=== PATIENT | female | born 1980 | race Caucasian/White ===

== ENCOUNTER 2020-11-16 22:51 | Emergency (ER) | payer MEDICARE, MEDICAID ==
--- NOTE | 2020-11-16 23:38 | EDM.PDOC ---
ED HPI GENERAL MEDICAL PROBLEM - General Chief Complaint: General Stated Complaint: No taste, achy Time Seen by Provider: 11/16/20 22:54 Source of Information: Reports: Patient History Limitations: Reports: No Limitations - History of Present Illness INITIAL COMMENTS - FREE TEXT/NARRATIVE: Patient comes to ER concerned that she may have Covid. One day history of mild cough, headache, body aches/symptoms started this morning. Lost sense of taste. No specific known Covid exposure but attended a gun safety class with a child last week and week before where most people were not masked. No focal chest pain complaint. Mild sensation SOB at times/has asthma. Smoker. Has not been vaccinated for Covid 19. Treatments [employer]EARCH [employer]GRAM [employer]: Reports: Acetaminophen Generalized Pain Score (Numeric/FACES): 8 - Related Data Allergies Allergy/AdvReac Type Severity Reaction Status Date / Time No Known Allergies Allergy Verified 11/16/20 22:52 Home Meds: Home Meds Acetaminophen [Tylenol Extra Strength] 1,000 mg PO ASDIRECTED PRN 11/16/20 [History] Albuterol Sulfate [Proair Hfa] 8.5 gm IH Q4HR PRN 11/16/20 [History] Amphetamine/Dextroamphetamine [Adderall XR] 30 mg PO DAILY 11/16/20 [History] Montelukast [Singulair] 10 mg PO DAILY 11/16/20 [History] atorvaSTATin [Lipitor] 40 mg PO BEDTIME 11/16/20 [History] hydrALAZINE [Apresoline] 50 mg PO DAILY 11/16/20 [History] lisinopriL [Prinivil] 20 mg PO DAILY 11/16/20 [History] Past Medical History Cardiovascular History: Reports: High Cholesterol, Hypertension Respiratory History: Reports: Asthma, COPD Psychiatric History: Reports: ADHD Endocrine/Metabolic History: Reports: Obesity/BMI 30+ Social & Family History - Tobacco Use Tobacco Use Status *Q: Current Every Day Tobacco User - Alcohol Use Alcohol Use History: No - Recreational Drug Use Recreational Drug Use: No Drug Use in Last 12 Months: No ED ROS GENERAL - Review of Systems Review Of Systems: Comprehensive ROS is negative, except as noted in HPI. ED EXAM, GENERAL - Physical Exam Exam: See Below Exam Limited By: No Limitations General Appearance: Alert, Obese, Other (uncomfortable) Eye Exam: Bilateral Eye: EOMI, PERRL Ears: Normal External Exam, Hearing Grossly Normal Nose: No: Nasal Deformity, Nasal Swelling, Nasal Drainage Throat/Mouth: Normal Lips, Normal Voice, No Airway Compromise Head: Atraumatic, Normocephalic Neck: Normal Inspection, Supple, Non-Tender, Full Range of Motion. No: Lymphadenopathy (L), Lymphadenopathy (R) Respiratory/Chest: No Respiratory Distress, No Accessory Muscle Use, Chest Non- Tender, Wheezing (mild/bilateral) Cardiovascular: Normal Peripheral Pulses, No Murmur, Tachycardia GI/Abdominal: Normal Bowel Sounds, Soft, Non-Tender, No Distention (Female) Exam: Deferred Rectal (Female) Exam: Deferred Extremities: Normal Range of Motion, Normal Capillary Refill Neurological: Alert, Oriented, Normal Cognition, Normal Gait, No Motor/Sensory Deficits Psychiatric: Anxious Skin Exam: Warm, Dry, Intact, Normal Color Course - Vital Signs Last Recorded V/S: Last Vital Signs Temp 36.4 C 11/16/20 23:09 Pulse 115 H 11/16/20 23:09 Resp 20 11/16/20 23:09 BP 127/53 L 11/16/20 23:09 Pulse Ox 97 11/16/20 23:09 - Orders/Labs/Meds Orders: Active Orders 24 hr Category Date Time Status Chest 1V Frontal [CR] Stat Exams 11/16/20 22:56 Ordered CORONAVIRUS COVID-19 CONNIE [MOLEC] Routine Lab 11/16/20 23:19 Ordered UA W/MICROSCOPIC [URIN] Stat Lab 11/16/20 23:20 Ordered Isolation [COMM] Routine Oth 11/16/20 23:21 Ordered Labs: Laboratory Tests 11/16/20 11/16/20 11/16/20 Range/Units 23:30 23:30 23:30 WBC 15.4 H (4.0-10.2) K/uL RBC 4.29 (3.77-5.09) M/uL Hgb 13.4 (11.7-15.5) g/dL Hct 39.2 (34.0-46.0) % MCV 91.4 (84.0-98.0) fL MCH 31.2 (28.2-33.3) pg MCHC 34.2 (31.7-36.0) g/dL RDW 14.2 H (11.2-14.1) % Plt Count 403 H (150-350) K/uL Neut % (Auto) 72.4 (45.0-80.0) % Lymph % (Auto) 19.4 (10.0-50.0) % [place] % (Auto) 7.2 (2.0-14.0) % Eos % (Auto) 0.8 (0.0-5.0) % Baso % (Auto) 0.2 (0.0-2.0) % Neut # (Auto) 11.19 H (1.40-7.00) K/uL Lymph # (Auto) 2.99 (0.50-3.50) K/uL [place] # (Auto) 1.11 H (0.00-1.00) K/uL Eos # (Auto) 0.12 (0.00-0.50) K/uL Baso # (Auto) 0.03 (0.00-0.20) K/uL D-Dimer, Quantitative 186 (0-400) ng/mL Sodium 136 (136-145) mmol/L Potassium 3.6 (3.5-5.1) mmol/L Chloride 101 (98-107) mmol/L Carbon Dioxide 23.1 (21.0-32.0) mmol/L BUN 12 (7-18) mg/dL Creatinine 0.80 (0.51-1.17) mg/dL Est Cr Clr Drug Dosing TNP Estimated GFR (MDRD) > 60 mL/min Glucose 116 H (70-99) mg/dL Calcium 9.4 (8.5-10.1) mg/dL Magnesium 1.9 (1.8-2.4) mg/dL Total Bilirubin 0.3 (0.2-1.0) mg/dL AST 14 L (15-37) U/L ALT 25 (12-78) U/L Alkaline Phosphatase 81 (46-116) IU/L Total Protein 6.7 (6.4-8.2) g/dL Albumin 3.1 L (3.4-5.0) g/dL - Radiology Interpretation Free Text/Narrative:: Chest xray does not show focal pneumonia or Covid type pattern of pneumonia. Pending formal Radiology review - Re-Assessments/Exams Free Text/Narrative Re-Assessment/Exam: 11/17/20 00:13 Mild tachycardia which would be anticipated with an acute viral infection/Covid. Normal respiratory rate and oxygen saturation on room air. Afebrile. Did take Tylenol earlier this evening. WBC elevated. Normal DDimer. Negative influenza. CMP overall unremarkable. Covid test will be run tomorrow morning by lab. Reassurance given to patient and usual course of Covid reviewed. She would be a candidate for monoclonal antibodies if her test is positive for Covid tomorrow. Work excuse given to patient. Encouraged to continue to avoid smoking and use this as opportunity to consider quitting smoking as she has felt too ill to smoke today. Follow up as needed depending on course of illness. To return for rechecks if feeling worse/more short of breath/etc. Departure - Departure Time of Disposition: 00:07 Disposition: Home, Self-Care 01 Condition: Good Clinical Impression: Suspected 2019-nCoV infection - Discharge Information *PRESCRIPTION DRUG MONITORING PROGRAM REVIEWED*: Not Applicable *COPY OF PRESCRIPTION DRUG MONITORING REPORT IN PATIENT SHUKRI: Not Applicable Instructions: COVID-19 Frequently Asked Questions, 10 Things You Can Do to Manage Your COVID-19 Symptoms at Home - CDC Referrals: PCP,Unknown [Primary Care Provider] - Forms: ED Department Discharge, ED Return to Work/School Form Additional Instructions: Stay home, rest, and stay hydrated! Tylenol for pain/fever. We will run the Covid test in the morning. If it is positive you can get scheduled for antibody infusion. You have a work slip that is good through the weekend. If you do have Covid you will need to get a longer work excuse from your clinic. Use your inhaler every 4-6 hours to help with any feeling of shortness of breath/coughing. Follow up as needed for recheck if you have worsening problems/concerns. If Covid test is negative consider arranging another test or Sunday. Sepsis Event Note (ED) - Evaluation Sepsis Screening Result: Possible Sepsis Risk - Focused Exam Vital Signs: Vital Signs Temp Pulse Resp BP Pulse Ox 11/16/20 23:09 36.4 C 115 H 20 127/53 L 97 - My Orders Last 24 Hours: My Active Orders 11/16/20 22:56 Chest 1V Frontal [CR] Stat 11/16/20 23:19 CORONAVIRUS COVID-19 CONNIE [MOLEC] Routine 11/16/20 23:20 UA W/MICROSCOPIC [URIN] Stat 11/16/20 23:21 Isolation [COMM] Routine - Assessment/Plan Last 24 Hours: My Active Orders 11/16/20 22:56 Chest 1V Frontal [CR] Stat 11/16/20 23:19 CORONAVIRUS COVID-19 CONNIE [MOLEC] Routine 11/16/20 23:20 UA W/MICROSCOPIC [URIN] Stat 11/16/20 23:21 Isolation [COMM] Routine
[2020-11-16 23:53] LABS: CHLORIDE,CL 101 mmol/L (98-107); SODIUM,NA 136 mmol/L (136-145)
== END 2020-11-17 00:20 | disposition home or self-care (01) ==
LOC: LL.ED 22:51
DX: Z20.822 Contact with and (suspected) exposure to COVID-19 (principal); E78.00 Pure hypercholesterolemia, unspecified; I10 Essential (primary) hypertension; E66.9 Obesity, unspecified; J44.9 Chronic obstructive pulmonary disease, unspecified; Z79.899 Other long term (current) drug therapy; Z68.30 Body mass index [BMI] 30.0-30.9, adult; Z72.0 Tobacco use
CPT/HCPCS: 36415; 71045; 80053; 83735; 85025; 85379; 87804; 99283; 99284-25; U0002

== ENCOUNTER 2021-01-15 09:41 | Emergency (ER) | payer MEDICARE, MEDICAID ==
[2021-01-15] MEDS ORDERED: Iopamidol 612 MG/ML 100 ML Bottle IVPUSH STA (10:41)
[2021-01-15 11:08] LABS: CHLORIDE,CL 104 mmol/L (98-107); SODIUM,NA 139 mmol/L (136-145)
--- NOTE | 2021-01-15 12:56 | EDM.PDOC ---
ED HPI GENERAL MEDICAL PROBLEM - General Chief Complaint: General Stated Complaint: right sided chest pain Time Seen by Provider: 01/15/21 10:14 Source of Information: Reports: Patient History Limitations: Reports: No Limitations - History of Present Illness INITIAL COMMENTS - FREE TEXT/NARRATIVE: Patient comes to ER with severe right lower chest pain after falling onto a metal grate when she missed a step coming out of her home. Landed on right side with arms outstretched. No loc. Did hit head on ground but chest took most of the hit from the fall. Denies other injuries. Breathing/moving make chest pain worse. EMS called and brought patient to ER. They gave single dose Dilaudid en route. Treatments SUPERVISOR PRINT LINE: Reports: Other (see below) Other Treatments SUPERVISOR PRINT LINE: dilauadid IV right side/chest pain Pain Score (Numeric/FACES): 4 - Related Data Allergies Allergy/AdvReac Type Severity Reaction Status Date / Time No Known Allergies Allergy Verified 01/15/21 09:44 Home Meds: Home Meds Albuterol Sulfate [Proair Hfa] 8.5 gm IH Q4HR PRN 11/16/20 [History] Amphetamine/Dextroamphetamine [Adderall XR] 30 mg PO DAILY 11/16/20 [History] Montelukast [Singulair] 10 mg PO DAILY 11/16/20 [History] atorvaSTATin [Lipitor] 40 mg PO BEDTIME 11/16/20 [History] hydrALAZINE [Apresoline] 50 mg PO DAILY 11/16/20 [History] lisinopriL [Prinivil] 20 mg PO DAILY 11/16/20 [History] Aspirin [Children's Aspirin] 81 mg PO DAILY 01/15/21 [History] Past Medical History Cardiovascular History: Reports: High Cholesterol, Hypertension Respiratory History: Reports: Asthma, COPD 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: Reports: Fibroids, Neurological History: Reports: CVA Psychiatric History: Reports: ADHD Endocrine/Metabolic History: Reports: Obesity/BMI 30+ Oncologic (Cancer) History: Reports: Cervix - Past Surgical History HEENT Surgical History: Reports: Adenoidectomy, Tonsillectomy GI Surgical History: Reports: Cholecystectomy Female Surgical History: Reports: Hysterectomy, Other (See Below) Other Female Surgeries/Procedures: 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, then patient had a complete hysterectomy Social & Family History - Tobacco Use Tobacco Use Status *Q: Current Every Day Tobacco User Years of Tobacco use: 25 Packs/Tins Daily: 0.5 Second Hand Smoke Exposure: No - Caffeine Use Caffeine Use: Reports: Coffee, Tea Other Caffeine Use: 8 oz cup of coffe and tea - Recreational Drug Use Recreational Drug Use: No ED ROS GENERAL - Review of Systems Review Of Systems: See Below Constitutional: Reports: No Symptoms HEENT: Reports: No Symptoms Respiratory: Reports: Pleuritic Chest Pain Cardiovascular: Reports: Chest Pain GI/Abdominal: Reports: Abdominal Pain (right upper quadrant). Denies: Constipation, Diarrhea, Nausea, Vomiting : Reports: No Symptoms Musculoskeletal: Denies: Neck Pain, Shoulder Pain, Arm Pain, Back Pain, Leg Pain, Foot Pain, Joint Pain, Joint Swelling Skin: Reports: No Symptoms Neurological: Reports: No Symptoms Psychiatric: Reports: No Symptoms Hematologic/Lymphatic: Reports: No Symptoms ED EXAM, GENERAL - Physical Exam Exam: See Below Exam Limited By: No Limitations General Appearance: Alert, Moderate Distress, Obese, Other (Up pacing back and forth in room, holding right side with hands. ) Eye Exam: Bilateral Eye: EOMI, PERRL Ears: Normal External Exam, Hearing Grossly Normal Nose: No: Nasal Deformity, Nasal Swelling, Nasal Drainage Throat/Mouth: Normal Lips, Normal Voice, No Airway Compromise Head: Atraumatic, Normocephalic. No: Facial Swelling, Facial Tenderness, Sinus Tenderness Neck: Normal Inspection, Supple, Non-Tender, Full Range of Motion. No: Lymphadenopathy (L), Lymphadenopathy (R) Respiratory/Chest: No Respiratory Distress, Lungs Clear, Normal Breath Sounds, Other (chest very tender with palpation right lower anterior/lateral ribs. No crepitus) Cardiovascular: Normal Peripheral Pulses, Regular Rate, Rhythm, No Murmur GI/Abdominal: Normal Bowel Sounds, Soft, Tender (significant discomfort with palpation RUQ). No: Guarding, Rigid, Rebound (Female) Exam: Deferred Rectal (Female) Exam: Deferred Back Exam: No: CVA Tenderness (L), CVA Tenderness (R), Muscle Spasm, Paraspinal Tenderness, Vertebral Tenderness Extremities: Normal Range of Motion, Non-Tender, Normal Capillary Refill Neurological: Alert, Oriented, Normal Cognition, Normal Gait, No Motor/Sensory Deficits Psychiatric: Anxious Skin Exam: Warm, Dry, Intact, Normal Color Course - Vital Signs Last Recorded V/S: Last Vital Signs Temp 36.6 C 01/15/21 09:52 Pulse 87 01/15/21 09:52 Resp 16 01/15/21 09:52 BP 108/67 01/15/21 09:52 Pulse Ox 98 01/15/21 09:52 - Orders/Labs/Meds Orders: Active Orders 24 hr Category Date Time Status Abdomen w Cont [CT] Stat Exams 01/15/21 10:35 Taken Chest wo Cont [CT] Stat Exams 01/15/21 10:24 Taken Ribs 2V w Chest Rt [CR] Stat Exams 01/15/21 10:05 Taken UA W/MICROSCOPIC [URIN] Stat Lab 01/15/21 10:34 Ordered Labs: Laboratory Tests 01/15/21 01/15/21 Range/Units 10:42 10:42 WBC 12.7 H (4.0-10.2) K/uL RBC 4.89 (3.77-5.09) M/uL Hgb 15.4 D (11.7-15.5) g/dL Hct 46.2 H (34.0-46.0) % MCV 94.5 D (84.0-98.0) fL MCH 31.5 (28.2-33.3) pg MCHC 33.3 (31.7-36.0) g/dL RDW 14.6 H (11.2-14.1) % Plt Count 492 H D (150-350) K/uL Neut % (Auto) 58.8 (45.0-80.0) % Lymph % (Auto) 29.7 (10.0-50.0) % Wise % (Auto) 6.7 (2.0-14.0) % Eos % (Auto) 4.6 (0.0-5.0) % Baso % (Auto) 0.2 (0.0-2.0) % Neut # (Auto) 7.48 H (1.40-7.00) K/uL Lymph # (Auto) 3.77 H (0.50-3.50) K/uL Wise # (Auto) 0.85 (0.00-1.00) K/uL Eos # (Auto) 0.58 H (0.00-0.50) K/uL Baso # (Auto) 0.03 (0.00-0.20) K/uL Sodium 139 (136-145) mmol/L Potassium 4.5 (3.5-5.1) mmol/L Chloride 104 (98-107) mmol/L Carbon Dioxide 27.0 (21.0-32.0) mmol/L BUN 9 (7-18) mg/dL Creatinine 0.67 (0.51-1.17) mg/dL Est Cr Clr Drug Dosing 88.28 mL/min Estimated GFR (MDRD) > 60 mL/min Glucose 105 H (70-99) mg/dL Calcium 10.2 H (8.5-10.1) mg/dL Total Bilirubin 0.3 (0.2-1.0) mg/dL AST 14 L (15-37) U/L ALT 26 (12-78) U/L Alkaline Phosphatase 98 (46-116) IU/L Total Protein 7.9 (6.4-8.2) g/dL Albumin 3.7 (3.4-5.0) g/dL Meds: Medications Discontinued Medications Generic Name Dose Route Start Last Admin Trade Name Freq PRN Reason Stop Dose Admin Iopamidol 100 ml 01/15/21 10:41 01/15/21 11:34 Iopamidol 612 Mg/Ml 100 Ml Bottle IVPUSH 01/15/21 10:42 100 ml ONETIME STA Administration - Re-Assessments/Exams Free Text/Narrative Re-Assessment/Exam: 01/15/21 13:08 Initially plain films of right chest ordered. Limited value due to patient's significant obesity. Chest CT ordered to evaluate for rib fracture/deeper injury given patient's level of pain complaint. Abdominal CT added as patient started to complain about increasingly severe pain in RUQ. Given mechanism of injury due to the metal rebar grate more significant injury such as liver laceration was within differential. Baseline CBC/Chem ordered. Scans sent to [facility] for review. Results returned by fax 12:43 pm/no evidence of fracture or other trauma per Radiology. Results shared with patient. She had declined any additional pain medication after arrival to ER. Had received Dilaudid from EMS crew prior to arrival. Injury at this time appears to be limited to contusion/soft tissue injury. Work slip given to patient and she has today/tomorrow/Sunday off. To follow up as needed if any acute problems develop. To follow up at clinic next week as needed. Departure - Departure Time of Disposition: 12:52 Disposition: Home, Self-Care 01 Condition: Good Clinical Impression: Contusion, chest wall Qualifiers: Encounter type: initial encounter Laterality: right Qualified Code(s): S20.211A - Contusion of right front wall of thorax, initial encounter - Discharge Information *PRESCRIPTION DRUG MONITORING PROGRAM REVIEWED*: Not Applicable *COPY OF PRESCRIPTION DRUG MONITORING REPORT IN PATIENT SHUKRI: Not Applicable Instructions: Rib Contusion Referrals: Dale Tinoco PA-C [Primary Care Provider] - Forms: ED Department Discharge, ED Return to Work/School Form Additional Instructions: Take it easy/gentle activity. Your CT study showed no evidence of any broken ribs or deeper damage such as liver laceration. Ice sore areas. OK to take Ibuprofen or Aleve or Tylenol to help with any pain. Follow up with your clinic provider for recheck as needed. Follow up otherwise as needed if you have additional problems/concerns. Sepsis Event Note (ED) - Evaluation Sepsis Screening Result: No Definite Risk - Focused Exam Vital Signs: Vital Signs Temp Pulse Resp BP Pulse Ox 01/15/21 09:52 36.6 C 87 16 108/67 98 - My Orders Last 24 Hours: My Active Orders 01/15/21 10:05 Ribs 2V w Chest Rt [CR] Stat 01/15/21 10:24 Chest wo Cont [CT] Stat 01/15/21 10:34 UA W/MICROSCOPIC [URIN] Stat 01/15/21 10:35 Abdomen w Cont [CT] Stat - Assessment/Plan Last 24 Hours: My Active Orders 01/15/21 10:05 Ribs 2V w Chest Rt [CR] Stat 01/15/21 10:24 Chest wo Cont [CT] Stat 01/15/21 10:34 UA W/MICROSCOPIC [URIN] Stat 01/15/21 10:35 Abdomen w Cont [CT] Stat
== END 2021-01-15 13:15 | disposition home or self-care (01) ==
LOC: LL.ED 09:41
DX: S20.211A Contusion of right front wall of thorax, initial encounter (principal); E78.00 Pure hypercholesterolemia, unspecified; I10 Essential (primary) hypertension; J44.9 Chronic obstructive pulmonary disease, unspecified; E66.9 Obesity, unspecified; Z68.43 Body mass index [BMI] 50.0-59.9, adult; Z72.0 Tobacco use; Z79.82 Long term (current) use of aspirin; Z79.899 Other long term (current) drug therapy; W18.09XA Striking against other object with subsequent fall, initial encounter; Y92.009 Unspecified place in unspecified non-institutional (private) residence as the place of occurrence of the external cause
CPT/HCPCS: 36415; 71101-RT; 71250; 74160; 80053; 85025; 99283; 99284-25; Q9967

== ENCOUNTER 2021-03-23 11:23 | Emergency (ER) | payer MEDICARE, MEDICAID ==
[2021-03-23] MEDS: Sodium Chloride 0.9% 1,000 ML IV ONE (11:40)
[2021-03-23] MEDS: Sodium Chloride 0.9% 10 ML Syringe FLUSH PRN (11:55)
[2021-03-23 11:59] LABS: ANION GAP 9.7 meq/L (7-15); CHLORIDE,CL 104 mmol/L (98-107); SODIUM,NA 140 mmol/L (136-145)
[2021-03-23] MEDS: Iopamidol 755 Mg/ML 100 ML Bottle IVPUSH STA (12:14)
[2021-03-23 12:38] LABS: PTT,PARTIAL THROMBOPLSTIN TIME 24.9 SEC (24.5-32.8)
--- NOTE | 2021-03-23 13:24 | EDM.PDOC ---
ED HPI GENERAL MEDICAL PROBLEM - General Chief Complaint: Neuro Symptoms/Deficits Stated Complaint: stroke Time Seen by Provider: 03/23/21 11:25 Source of Information: Reports: Patient, RN Notes Reviewed - History of Present Illness INITIAL COMMENTS - FREE TEXT/NARRATIVE: Patient is brought to the emergency department today by coworker with concerns of a stroke. HPI obtained by myself is primarily from the nursing staff as the patient is unresponsive by the time I get to see her. According to the nursing staff the patient told her upon arrival that she was sitting at work at approximately 11:00 when she suddenly felt lightheaded dizzy and some paresthesias to her face. This is a very similar presentation that she had about a year ago in January 2020 she was noted to have a large stroke. She re ceived TPA at that time and physical therapy and has no deficits following the stroke. She has been well otherwise the last week without any complaints. According to nursing staff she was alert appropriate clear articulate and had no focal neurological deficits upon arrival. She was able to ambulate into the room. The nurse left the room to call myself to come and see the patient and when she returned approximately 30 seconds later the patient was completely unresponsive. Upon my arrival the patient is unresponsive. She is not moving spontaneously. She is unresponsive to pain. She is maintaining her airway. There is no snoring respirations. Rest of the HPI is unobtainable. Stroke code was activated. - Related Data Allergies Allergy/AdvReac Type Severity Reaction Status Date / Time No Known Allergies Allergy Verified 03/23/21 11:44 Home Meds: Home Meds Albuterol Sulfate [Proair Hfa] 8.5 gm IH Q4HR PRN 11/16/20 [History] Amphetamine/Dextroamphetamine [Adderall XR] 30 mg PO DAILY 11/16/20 [History] Montelukast [Singulair] 10 mg PO DAILY 11/16/20 [History] atorvaSTATin [Lipitor] 40 mg PO BEDTIME 11/16/20 [History] hydrALAZINE [Apresoline] 50 mg PO DAILY 11/16/20 [History] lisinopriL [Prinivil] 20 mg PO DAILY 11/16/20 [History] Aspirin [Children's Aspirin] 81 mg PO DAILY 01/15/21 [History] Montelukast Sodium 10 mg PO BEDTIME 03/23/21 [History] Naltrexone HCl/Bupropion HCl [Contrave ER 8-90 mg Tablet] 1 tab PO BID 03/23/21 [History] Prazosin HCl [Prazosin] 2 mg PO DAILY 03/23/21 [History] metroNIDAZOLE [Metronidazole] 1 tab PO BID 03/23/21 [History] Past Medical History Cardiovascular History: Reports: High Cholesterol, Hypertension Respiratory History: Reports: Asthma, COPD 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: Fibroids, Neurological History: Reports: CVA Psychiatric History: Reports: ADHD Endocrine/Metabolic History: Reports: Obesity/BMI 30+ Oncologic (Cancer) History: Reports: Cervix - Past Surgical History HEENT Surgical History: Reports: Adenoidectomy, Tonsillectomy GI Surgical History: Reports: Cholecystectomy Female Surgical History: Reports: Hysterectomy, Other (See Below) Other Female Surgeries/Procedures: 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, then patient had a complete hysterectomy Social & Family History - Caffeine Use Caffeine Use: Reports: Coffee, Tea Other Caffeine Use: 8 oz cup of coffe and tea ED ROS GENERAL - Review of Systems Review Of Systems: Unable To Obtain Reason Not Obtained: Unresponsive ED EXAM, NEURO - Physical Exam Exam: See Below Exam Limited By: Altered Mental Status (Unresponsive) General Appearance: Obtunded Eye Exam: Bilateral Eye: PERRL Ears: Normal External Exam Nose: Normal Inspection Throat/Mouth: Normal Inspection Head Exam: Atraumatic, Normocephalic Neck: Normal Inspection, Supple, Non-Tender Respiratory/Chest: No Respiratory Distress, Lungs Clear, No Accessory Muscle Use, Chest Non-Tender Cardiovascular: Normal Peripheral Pulses, Regular Rate, Rhythm GI/Abdominal: Normal Bowel Sounds, Soft, Non-Tender (Female) Exam: Deferred Rectal (Female) Exam: Deferred Neurological: Other (Unresponsive no spontaneous movement. No response to painful stimuli. Maintaining airway. Pupils 3 mm sluggish bilaterally. Equal) Extremities: Normal Inspection Skin Exam: Warm, Dry, Intact, Normal Color Course - Vital Signs Last Recorded V/S: Last Vital Signs Temp 98 F 03/23/21 11:25 Pulse 86 03/23/21 11:25 Resp 16 03/23/21 11:25 BP 166/95 H 03/23/21 11:25 Pulse Ox 98 03/23/21 11:25 - Orders/Labs/Meds Orders: Active Orders 24 hr Category Date Time Status Peripheral IV Care [RC] . DIRECTED Care 03/23/21 11:33 Active Ang Neck [CT] Stat Exams 03/23/21 11:33 Taken CTA Head W & W/O Contrast [Ang Head] [CT] Stat Exams 03/23/21 11:33 Taken Chest 1V Frontal [CR] Stat Exams 03/23/21 11:32 Taken Head wo Cont [CT] Stat Exams 03/23/21 11:32 Taken CORONAVIRUS COVID-19 CONNIE [MOLEC] Stat Lab 03/23/21 11:33 Ordered Sodium Chloride 0.9% [Saline Flush] Med 03/23/21 11:32 Active 10 ml FLUSH ASDIRECTED PRN Peripheral IV Insertion Adult [OM.PC] Stat Oth 03/23/21 11:32 Ordered Medication Orders Sodium Chloride (Sodium Chloride 0.9% 10 Ml Syringe) 10 ml FLUSH ASDIRECTED PRN PRN Reason: Keep Vein Open Last Admin: 03/23/21 11:55 Dose: 10 ml Documented by: ABRAHAM Labs: Laboratory Tests 03/23/21 03/23/21 03/23/21 Range/Units 11:26 11:30 11:30 WBC 16.7 H (4.0-10.2) K/uL RBC 4.62 (3.77-5.09) M/uL Hgb 14.7 (11.7-15.5) g/dL Hct 43.1 (34.0-46.0) % MCV 93.3 (84.0-98.0) fL MCH 31.8 (28.2-33.3) pg MCHC 34.1 (31.7-36.0) g/dL RDW 13.9 (11.2-14.1) % Plt Count 450 H (150-350) K/uL Neut % (Auto) 53.5 (45.0-80.0) % Lymph % (Auto) 34.9 (10.0-50.0) % Mccone % (Auto) 7.0 (2.0-14.0) % Eos % (Auto) 4.3 (0.0-5.0) % Baso % (Auto) 0.3 (0.0-2.0) % Neut # (Auto) 8.95 H (1.40-7.00) K/uL Lymph # (Auto) 5.84 H (0.50-3.50) K/uL Mccone # (Auto) 1.18 H (0.00-1.00) K/uL Eos # (Auto) 0.72 H (0.00-0.50) K/uL Baso # (Auto) 0.05 (0.00-0.20) K/uL PT (9.5-12.0) SEC INR APTT (24.5-32.8) SEC Sodium 140 (136-145) mmol/L Potassium 4.0 (3.5-5.1) mmol/L Chloride 104 (98-107) mmol/L Carbon Dioxide 26.3 (21.0-32.0) mmol/L Anion Gap 9.7 (7-15) meq/L BUN 11 (7-18) mg/dL Creatinine 0.90 (0.51-1.17) mg/dL Est Cr Clr Drug Dosing 68.73 mL/min Estimated GFR (MDRD) > 60 mL/min Glucose 115 H (70-99) mg/dL POC Glucose 124 H (70-99) mg/dL Lactic Acid (0.4-2.0) mmol/L Calcium 10.2 H (8.5-10.1) mg/dL Total Bilirubin 0.2 (0.2-1.0) mg/dL AST 14 L (15-37) U/L ALT 27 (12-78) U/L Alkaline Phosphatase 98 (46-116) IU/L Troponin I High Sens (<=51) ng/L C-Reactive Protein 0.8 (<=0.9) mg/dL Total Protein 7.3 (6.4-8.2) g/dL Albumin 3.6 (3.4-5.0) g/dL Specimen Type Urine Color Urine Appearance Urine pH (5.0-9.0) Ur Specific Ruskin (1.005-1.030) Urine Protein (NEGATIVE) mg/dL Urine Glucose (UA) (NEGATIVE) mg/dL Urine Ketones (NEGATIVE) mg/dL Urine Occult Blood (NEGATIVE) Urine Nitrite (NEGATIVE) Urine Bilirubin (NEGATIVE) Urine Urobilinogen (0.2-1.0) E.U./dL Ur Leukocyte Esterase (NEGATIVE) Urine HCG, Qual Urine Opiates Screen (NEGATIVE) Ur Buprenorphine Scrn (NEGATIVE) Ur Oxycodone Screen (NEGATIVE) Ur EDDP (Meth Metab) (NEGATIVE) Ur Barbiturates Screen (NEGATIVE) Ur Tricyclics Screen (NEGATIVE) Ur Amphetamine Screen (NEGATIVE) U Methamphetamines Scrn (NEGATIVE) Urine MDMA Screen (NEGATIVE) U Benzodiazepines Scrn (NEGATIVE) U Cocaine Metab Screen (NEGATIVE) U Marijuana (THC) Screen (NEGATIVE) Ethyl Alcohol 0.000 (0.000-0.080) g/dL 03/23/21 03/23/21 03/23/21 Range/Units 11:30 11:30 11:30 WBC (4.0-10.2) K/uL RBC (3.77-5.09) M/uL Hgb (11.7-15.5) g/dL Hct (34.0-46.0) % MCV (84.0-98.0) fL MCH (28.2-33.3) pg MCHC (31.7-36.0) g/dL RDW (11.2-14.1) % Plt Count (150-350) K/uL Neut % (Auto) (45.0-80.0) % Lymph % (Auto) (10.0-50.0) % Mccone % (Auto) (2.0-14.0) % Eos % (Auto) (0.0-5.0) % Baso % (Auto) (0.0-2.0) % Neut # (Auto) (1.40-7.00) K/uL Lymph # (Auto) (0.50-3.50) K/uL Mccone # (Auto) (0.00-1.00) K/uL Eos # (Auto) (0.00-0.50) K/uL Baso # (Auto) (0.00-0.20) K/uL PT 9.1 L (9.5-12.0) SEC INR 0.9 APTT 24.9 (24.5-32.8) SEC Sodium (136-145) mmol/L Potassium (3.5-5.1) mmol/L Chloride (98-107) mmol/L Carbon Dioxide (21.0-32.0) mmol/L Anion Gap (7-15) meq/L BUN (7-18) mg/dL Creatinine (0.51-1.17) mg/dL Est Cr Clr Drug Dosing mL/min Estimated GFR (MDRD) mL/min Glucose (70-99) mg/dL POC Glucose (70-99) mg/dL Lactic Acid 1.3 (0.4-2.0) mmol/L Calcium (8.5-10.1) mg/dL Total Bilirubin (0.2-1.0) mg/dL AST (15-37) U/L ALT (12-78) U/L Alkaline Phosphatase (46-116) IU/L Troponin I High Sens 8 (<=51) ng/L C-Reactive Protein (<=0.9) mg/dL Total Protein (6.4-8.2) g/dL Albumin (3.4-5.0) g/dL Specimen Type Urine Color Urine Appearance Urine pH (5.0-9.0) Ur Specific [place] (1.005-1.030) Urine Protein (NEGATIVE) mg/dL Urine Glucose (UA) (NEGATIVE) mg/dL Urine Ketones (NEGATIVE) mg/dL Urine Occult Blood (NEGATIVE) Urine Nitrite (NEGATIVE) Urine Bilirubin (NEGATIVE) Urine Urobilinogen (0.2-1.0) E.U./dL Ur Leukocyte Esterase (NEGATIVE) Urine HCG, Qual Urine Opiates Screen (NEGATIVE) Ur Buprenorphine Scrn (NEGATIVE) Ur Oxycodone Screen (NEGATIVE) Ur EDDP (Meth Metab) (NEGATIVE) Ur Barbiturates Screen (NEGATIVE) Ur Tricyclics Screen (NEGATIVE) Ur Amphetamine Screen (NEGATIVE) U Methamphetamines Scrn (NEGATIVE) Urine MDMA Screen (NEGATIVE) U Benzodiazepines Scrn (NEGATIVE) U Cocaine Metab Screen (NEGATIVE) U Marijuana (THC) Screen (NEGATIVE) Ethyl Alcohol (0.000-0.080) g/dL 03/23/21 03/23/21 03/23/21 Range/Units 13:03 13:03 13:03 WBC (4.0-10.2) K/uL RBC (3.77-5.09) M/uL Hgb (11.7-15.5) g/dL Hct (34.0-46.0) % MCV (84.0-98.0) fL MCH (28.2-33.3) pg MCHC (31.7-36.0) g/dL RDW (11.2-14.1) % Plt Count (150-350) K/uL Neut % (Auto) (45.0-80.0) % Lymph % (Auto) (10.0-50.0) % Mccone % (Auto) (2.0-14.0) % Eos % (Auto) (0.0-5.0) % Baso % (Auto) (0.0-2.0) % Neut # (Auto) (1.40-7.00) K/uL Lymph # (Auto) (0.50-3.50) K/uL Mccone # (Auto) (0.00-1.00) K/uL Eos # (Auto) (0.00-0.50) K/uL Baso # (Auto) (0.00-0.20) K/uL PT (9.5-12.0) SEC INR APTT (24.5-32.8) SEC Sodium (136-145) mmol/L Potassium (3.5-5.1) mmol/L Chloride (98-107) mmol/L Carbon Dioxide (21.0-32.0) mmol/L Anion Gap (7-15) meq/L BUN (7-18) mg/dL Creatinine (0.51-1.17) mg/dL Est Cr Clr Drug Dosing mL/min Estimated GFR (MDRD) mL/min Glucose (70-99) mg/dL POC Glucose (70-99) mg/dL Lactic Acid (0.4-2.0) mmol/L Calcium (8.5-10.1) mg/dL Total Bilirubin (0.2-1.0) mg/dL AST (15-37) U/L ALT (12-78) U/L Alkaline Phosphatase (46-116) IU/L Troponin I High Sens (<=51) ng/L C-Reactive Protein (<=0.9) mg/dL Total Protein (6.4-8.2) g/dL Albumin (3.4-5.0) g/dL Specimen Type Urinvoid Urine Color Yellow Urine Appearance Slightly cloudy Urine pH 7.0 (5.0-9.0) Ur Specific [place]kin 1.015 (1.005-1.030) Urine Protein Negative (NEGATIVE) mg/dL Urine Glucose (UA) Negative (NEGATIVE) mg/dL Urine Ketones Negative (NEGATIVE) mg/dL Urine Occult Blood Negative (NEGATIVE) Urine Nitrite Negative (NEGATIVE) Urine Bilirubin Negative (NEGATIVE) Urine Urobilinogen 0.2 (0.2-1.0) E.U./dL Ur Leukocyte Esterase Negative (NEGATIVE) Urine HCG, Qual Negative Urine Opiates Screen Negative (NEGATIVE) Ur Buprenorphine Scrn Negative (NEGATIVE) Ur Oxycodone Screen Negative (NEGATIVE) Ur EDDP (Meth Metab) Negative (NEGATIVE) Ur Barbiturates Screen Negative (NEGATIVE) Ur Tricyclics Screen Negative (NEGATIVE) Ur Amphetamine Screen Negative (NEGATIVE) U Methamphetamines Scrn Negative (NEGATIVE) Urine MDMA Screen Negative (NEGATIVE) U Benzodiazepines Scrn Negative (NEGATIVE) U Cocaine Metab Screen Negative (NEGATIVE) U Marijuana (THC) Screen Negative (NEGATIVE) Ethyl Alcohol (0.000-0.080) g/dL Meds: Medications Generic Name Dose Route Start Last Admin Trade Name Freq PRN Reason Stop Dose Admin Sodium Chloride 10 ml 03/23/21 11:32 03/23/21 11:55 Sodium Chloride 0.9% 10 Ml Syringe FLUSH 10 ml ASDIRECTED PRN Administration Keep Vein Open Discontinued Medications Generic Name Dose Route Start Last Admin Trade Name Freq PRN Reason Stop Dose Admin Sodium Chloride 1,000 mls @ 999 mls/hr 03/23/21 11:40 03/23/21 11:40 Normal Saline IV 03/23/21 12:40 999 mls/hr .BOLUS ONE Administration Iopamidol 100 ml 03/23/21 11:45 03/23/21 12:14 Iopamidol 755 Mg/Ml 100 Ml Bottle IVPUSH 03/23/21 11:46 100 ml ONETIME STA Administration - Radiology Interpretation Free Text/Narrative:: CT the head per radiology no acute intercranial abnormality. See report. Recommend MRI for further follow-up. CT of the head and neck per radiology shows no significant large arterial narrowing in the head or neck. Mildly prominent cervical lymph nodes are nonspecific likely reactive. - Re-Assessments/Exams Free Text/Narrative Re-Assessment/Exam: A stroke code was activated shortly after the patients arrival and the team was already in house. Bedside glucose was WNL. As we were rolling the patient over to the CT scanner I began to notice some concerns for airway control. She was unresponsive to painful stimuli. Although she was protecting her airway. Preparation for RSI. CT scan of the head was completed. She maintained her airway during CT of the head. With a simple jaw thrust maneuver. She maintain oxygen saturation. She was brought back to the emergency department. Once we returned to the emergency department my concerns of airway compromise have resolved. She is starting to alert. She is starting to move. She really appears more postictal than anything. Initially I was unable to complete an NIH stroke scale and the patient because of her presentation it is completed at this time and there is no focal neurological deficits. She is somewhat slow to respond but she has articulate. There is no other focal neurological deficits. Within 5 minutes the patient is completely back to normal. She is alert appropriate. She moves all extremities strong and equal to command. Her speech is clear and articulate. There is no other focal neurological deficits. She is not incontinent of urine. She does not recall arriving in the hospital. She does recall telling a coworker that she felt funny and thought that she might of been having a stroke. She does not recall the car ride to the emergency department. Her neurological exam at this time is unremarkable. She is alert appropriate. There is no ataxia there is no pronator drift. Speech is clear and articulate. Her NIH stroke scale is 0. She is sitting up in bed in talking clearly. She is on her phone talking to her son. CT of the head neck was completed. Laboratory evaluation is unremarkable really. She is a mild elevation of her white blood cell count at 16.7 with no shift. Coags are normal. Glucose is 115 calcium 10.2 AST 14 C-reactive protein is normal. Troponin is 8. Urinalysis is noninfectious appearing. Urine drug screen is negative. Alcohol is negative. Multiple repeat neurological evaluation still shows an NIH stroke scale of 0. She is alert appropriate. Moving all extremities strong and equal to command. CT of the head and CTA head neck as per radiology. I called and spoke with Dr. Roche at neurology at [place]. HPI ER COURSE findings and concerns were relayed to him. He did have the CTs available to view while we were discussing. He agrees that this is not really a strokelike presentation and with the aura prior to this unresponsive episode this is most likely some type of focal seizure. His guidance would be an MRI of the brain with contrast seizure protocol as well as an outpatient EEG. I reviewed the laboratory evaluation as well as the CT exam of the patient. I really do not see any evidence of a stroke. This is really the presentation of some type of abnormal focal seizure. She has no lower neurological deficits. She is no large vessel disease. Guidance for seizure precautions were given to the patient. She must follow-up with her primary care next available for MRI of the brain as well as an EEG. Discharge directions as below are explained to the patient she was comfortable with this plan and her questions are answered. 03/23/21 13:52 Departure - Departure Time of Disposition: : Disposition: Home, Self-Care 01 Clinical Impression: Unresponsive episode, Seizure - Discharge Information Instructions: Epilepsy, [id number], Seizure, Adult, [id number] Referrals: Dale Tinoco PA-C [Primary Care Provider] - Forms: ED Department Discharge Additional Instructions: Follow up with PCP GILDARDO for MRI Brain with contrast seizure protocol. Also an outpatient routine EEG. Seizure precautions. Do not drive. Do not leave vulnerable children with yourself and nobody else around for yours and their safety. Contact the clinic today to make follow up with your PCP. Continue previous medications. Return to the ED if new or worsening symptoms. Sepsis Event Note (ED) - Evaluation Sepsis Screening Result: No Definite Risk - Focused Exam Vital Signs: Vital Signs Temp Pulse Resp BP Pulse Ox 03/23/21 11:25 98 F 86 16 166/95 H 98 - My Orders Last 24 Hours: My Active Orders 03/23/21 11:32 Chest 1V Frontal [CR] Stat Head wo Cont [CT] Stat Sodium Chloride 0.9% [Saline Flush] 10 ml FLUSH ASDIRECTED PRN Peripheral IV Insertion Adult [OM.PC] Stat 03/23/21 11:33 Peripheral IV Care [RC] . DIRECTED Ang Neck [CT] Stat CTA Head W & W/O Contrast [Ang Head] [CT] Stat CORONAVIRUS COVID-19 CONNIE [MOLEC] Stat - Assessment/Plan Last 24 Hours: My Active Orders 03/23/21 11:32 Chest 1V Frontal [CR] Stat Head wo Cont [CT] Stat Sodium Chloride 0.9% [Saline Flush] 10 ml FLUSH ASDIRECTED PRN Peripheral IV Insertion Adult [OM.PC] Stat 03/23/21 11:33 Peripheral IV Care [RC] . DIRECTED Ang Neck [CT] Stat CTA Head W & W/O Contrast [Ang Head] [CT] Stat CORONAVIRUS COVID-19 CONNIE [MOLEC] Stat
[2021-03-23 13:31] LABS: BARBITURATE SCREEN,URINE NEGATIVE (NEGATIVE); BENZODIAZEPINES SCREEN,URINE NEGATIVE (NEGATIVE); EDDP,URINE SCREEN NEGATIVE (NEGATIVE); TCA SCREEN,URINE NEGATIVE (NEGATIVE); THC SCREEN,URINE 50 NG/ML NEGATIVE (NEGATIVE)
[2021-03-23 13:33] LABS: BUPRENORPHINE SCREEN,URINE NEGATIVE (NEGATIVE)
== END 2021-03-23 13:35 | disposition home or self-care (01) ==
LOC: LL.ED 11:23
DX: R56.9 Unspecified convulsions (principal); R40.0 Somnolence; E78.00 Pure hypercholesterolemia, unspecified; I10 Essential (primary) hypertension; J44.9 Chronic obstructive pulmonary disease, unspecified; E66.9 Obesity, unspecified; Z68.30 Body mass index [BMI] 30.0-30.9, adult; Z86.73 Personal history of transient ischemic attack (TIA), and cerebral infarction without residual deficits; Z79.82 Long term (current) use of aspirin; Z79.899 Other long term (current) drug therapy
CPT/HCPCS: 36415; 70450; 70496; 70498; 71045; 80053; 80305-QW; 80307; 81003; 81025; 82947; 83605; 84484; 85025; 85610; 85730; 86140; 99284; 99285-25; J7030; Q9967

== ENCOUNTER 2021-03-30 19:36 | Emergency (ER) | payer MEDICARE, MEDICAID ==
[2021-03-30] MEDS ORDERED: EPINEPHrine 1 MG/1 ML Amp ONE (19:59)
[2021-03-30] MEDS ORDERED: methylPREDNISolone Sodium Succinate 125 MG/2 ML SDV IVPUSH ONE (20:11)
[2021-03-30] MEDS ORDERED: diphenhydrAMINE 25 MG Cap PO ONE (20:11)
[2021-03-30] MEDS ORDERED: methylPREDNISolone Sodium Succinate 125 MG/2 ML SDV IM ONE (20:33)
--- NOTE | 2021-03-30 21:34 | EDM.PDOC ---
ED HPI GENERAL MEDICAL PROBLEM - General Chief Complaint: Allergic Reaction Stated Complaint: BEE STING Time Seen by Provider: 03/30/21 19:50 - History of Present Illness INITIAL COMMENTS - FREE TEXT/NARRATIVE: Cely is a 40 y/o female who comes to the ER after being bitten accidentally by wasps multiple times. She was by the [employer] when a friend stepped on a wasp nest and they came after her. She was bitten on her back, chest , and legs. She is having some shortness of breath and heaviness in her chest since it happened. No previous reactions, has not taken any meds. - Related Data Allergies Allergy/AdvReac Type Severity Reaction Status Date / Time No Known Allergies Allergy Verified 03/23/21 11:44 Home Meds: Home Meds Albuterol Sulfate [Proair Hfa] 8.5 gm IH Q4HR PRN 11/16/20 [History] Amphetamine/Dextroamphetamine [Adderall XR] 30 mg PO DAILY 11/16/20 [History] Montelukast [Singulair] 10 mg PO DAILY 11/16/20 [History] atorvaSTATin [Lipitor] 40 mg PO BEDTIME 11/16/20 [History] hydrALAZINE [Apresoline] 50 mg PO DAILY 11/16/20 [History] lisinopriL [Prinivil] 20 mg PO DAILY 11/16/20 [History] Aspirin [Children's Aspirin] 81 mg PO DAILY 01/15/21 [History] Montelukast Sodium 10 mg PO BEDTIME 03/23/21 [History] Naltrexone HCl/Bupropion HCl [Contrave ER 8-90 mg Tablet] 1 tab PO BID 03/23/21 [History] Prazosin HCl [Prazosin] 2 mg PO DAILY 03/23/21 [History] metroNIDAZOLE [Metronidazole] 1 tab PO BID 03/23/21 [History] methylPREDNISolone [Medrol Dose Pack] 4 mg PO ASDIRECTED #21 dospk 03/30/21 [Rx] Past Medical History Cardiovascular History: Reports: High Cholesterol, Hypertension Respiratory History: Reports: Asthma, COPD 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, Neurological History: Reports: CVA Psychiatric History: Reports: ADHD Endocrine/Metabolic History: Reports: Obesity/BMI 30+ Oncologic (Cancer) History: Reports: Cervix - Past Surgical History HEENT Surgical History: Reports: Adenoidectomy, Tonsillectomy GI Surgical History: Reports: Cholecystectomy Female Surgical History: Reports: Hysterectomy, Other (See Below) Other Female Surgeries/Procedures: 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, then patient had a complete hysterectomy Social & Family History - Caffeine Use Caffeine Use: Reports: Coffee, Tea Other Caffeine Use: 8 oz cup of coffe and tea ED ROS ALLERGIC REACTION - Review of Systems Review Of Systems: See Below Constitutional: Reports: No Symptoms HEENT: Reports: No Symptoms Respiratory: Reports: Shortness of Breath Cardiovascular: Reports: No Symptoms Endocrine: Reports: No Symptoms GI/Abdominal: Reports: No Symptoms : Reports: No Symptoms Musculoskeletal: Reports: No Symptoms Skin: Reports: Other (bites) Neurological: Reports: No Symptoms Psychiatric: Reports: No Symptoms Hematologic/Lymphatic: Reports: No Symptoms Immunologic: Reports: No Symptoms ED EXAM GENERAL NO PERIP PULSE - Physical Exam Exam: See Below General Appearance: Alert, WD/WN, No Apparent Distress (Obese adult female, NAD. Sitting in recliner in ER.) Eye Exam: Bilateral Eye: PERRL Ears: Normal External Exam, Normal Canal, Hearing Grossly Normal Nose: Normal Inspection, Normal Mucosa Throat/Mouth: Normal Inspection, Normal Lips, Normal Oropharynx, Normal Voice Head: Atraumatic, Normocephalic Neck: Normal Inspection, Supple Respiratory/Chest: No Respiratory Distress, Lungs Clear, Chest Non-Tender Cardiovascular: Normal Peripheral Pulses, Regular Rate, Rhythm GI/Abdominal: Normal Bowel Sounds, Soft (Female) Exam: Deferred Rectal (Female) Exam: Deferred Extremities: Normal Inspection, Normal Range of Motion, No Pedal Edema, Normal Capillary Refill Neurological: Alert, Oriented, CN II-XII Intact, Normal Cognition, No Motor/Sensory Deficits Skin Exam: Warm, Dry, Intact, Normal Color, Other (Multiple raised erythamtous bite aparicio to upper back, legs, and trunk region.) Course - Vital Signs Text/Narrative:: 1949 The patient was seen by the [employer]. She was given Epi 0.3mg SQ since her chest was heavy. Also given Benadryl 50mg po and SoluMedrol 125mg IVP. 2109 Reports feeling better and sx gone. She was given written instructions and later left the ER in stable condition. - Orders/Labs/Meds Meds: Medications Discontinued Medications Generic Name Dose Route Start Last Admin Trade Name Berto PRN Reason Stop Dose Admin Diphenhydramine HCl 50 mg 03/30/21 20:11 03/30/21 20:31 Diphenhydramine 25 Mg Cap PO 03/30/21 20:12 50 mg ONETIME ONE Administration Epinephrine HCl Confirm 03/30/21 19:59 03/30/21 20:31 Epinephrine 1 Mg/1 Ml Amp Administered 03/30/21 20:00 1 mg Dose Administration 1 mg .ROUTE .STK-MED ONE Methylprednisolone Sodium Succinate 125 mg 03/30/21 20:11 Methylprednisolone Sodium Succinate 125 Mg/2 Ml Sdv IVPUSH 03/30/21 20:12 ONETIME ONE Methylprednisolone Sodium Succinate 125 mg 03/30/21 20:33 03/30/21 20:35 Methylprednisolone Sodium Succinate 125 Mg/2 Ml Sdv IM 03/30/21 20:34 125 mg ONETIME ONE Administration Departure - Departure Time of Disposition: 21:28 Disposition: Home, Self-Care 01 Condition: Good Clinical Impression: Wasp sting Qualifiers: Encounter type: initial encounter Injury intent: accidental or unintentional Qualified Code(s): T63.461A - Toxic effect of venom of wasps, accidental (unintentional), initial encounter - Discharge Information Prescriptions: methylPREDNISolone [Medrol Dose Pack] 4 mg PO ASDIRECTED #21 dospk Instructions: Bee, Wasp, or Hornet Sting, Adult Additional Instructions: -Medrol Dose Pack 4mg oral as directed #21(Rx) -Diphenhydramine 25mg-50mg oral every 6 hours for the next 24-48 hours (Use over the counter meds) -Rest today as the meds may make you tired. -Follow up with your PCP as needed -Return to the ER if you have further concerns
== END 2021-03-30 22:00 | disposition home or self-care (01) ==
LOC: LL.ED 19:36
DX: T63.461A Toxic effect of venom of wasps, accidental (unintentional), initial encounter (principal); E78.00 Pure hypercholesterolemia, unspecified; I10 Essential (primary) hypertension; J44.9 Chronic obstructive pulmonary disease, unspecified; E66.9 Obesity, unspecified; Z68.30 Body mass index [BMI] 30.0-30.9, adult; Z86.73 Personal history of transient ischemic attack (TIA), and cerebral infarction without residual deficits; Z79.82 Long term (current) use of aspirin; Z79.899 Other long term (current) drug therapy
CPT/HCPCS: 96372; 99283; A9270; J0171; J2930

== ENCOUNTER 2022-05-13 04:04 | Emergency (ER) | payer MEDICARE, MEDICAID ==
[2022-05-13] MEDS ORDERED: cefTRIAXone 1 GM Vial IM ONE (04:54)
[2022-05-13] MEDS: Ondansetron 4 MG Tab.DIS PO ONE (05:04)
[2022-05-13] MEDS: cefTRIAXone 1 GM Vial IM ONE ×2 (05:19)
[2022-05-13] MEDS: Lidocaine 1% 5 ML VIAL ONE (05:20)
== END 2022-05-13 05:30 | disposition home or self-care (01) ==
LOC: LL.ED 04:04
DX: L03.114 Cellulitis of left upper limb (principal); L02.414 Cutaneous abscess of left upper limb; J44.9 Chronic obstructive pulmonary disease, unspecified; F17.210 Nicotine dependence, cigarettes, uncomplicated; E66.9 Obesity, unspecified; Z79.899 Other long term (current) drug therapy; Z79.82 Long term (current) use of aspirin; Z79.01 Long term (current) use of anticoagulants; Z90.49 Acquired absence of other specified parts of digestive tract; Z90.710 Acquired absence of both cervix and uterus
CPT/HCPCS: 96372; 99283; A9270-GY; J0696

== ENCOUNTER 2022-07-12 21:28 | Emergency (ER) | payer MEDICARE, MEDICAID ==
[2022-07-12 22:26] LABS: CORONAVIRUS COVID-19 NAA NEGATIVE (NEGATIVE); RESPIRATORY SYNCYTIAL VIR NAA NEGATIVE (NEGATIVE)
[2022-07-12] MEDS: Albuterol/Ipratropium 3.0-0.5 MG/3 ML Neb Soln NEB ONE (22:31)
[2022-07-12] MEDS ORDERED: Azithromycin 250 MG Tab ONE (23:27)
[2022-07-12] MEDS: Azithromycin 250 MG Tab PO SCH (23:28)
[2022-07-12] MEDS: predniSONE 20 MG Tab PO SCH (23:29)
[2022-07-12 23:59] VITALS: BP 147/87; PULSE 82
== END 2022-07-12 23:50 | disposition home or self-care (01) ==
LOC: LL.ED 21:28
DX: J44.1 Chronic obstructive pulmonary disease with (acute) exacerbation (principal); I10 Essential (primary) hypertension; E66.9 Obesity, unspecified; F17.210 Nicotine dependence, cigarettes, uncomplicated; Z79.01 Long term (current) use of anticoagulants; Z79.899 Other long term (current) drug therapy; Z79.82 Long term (current) use of aspirin; Z20.822 Contact with and (suspected) exposure to COVID-19
CPT/HCPCS: 0241U; 71046; 94640; 99284; A9270-GY; J7512; J7620-GY

== ENCOUNTER 2023-03-28 21:47 | Emergency (ER) | payer MEDICARE, MEDICAID ==
[2023-03-28 22:29] LABS: BASOPHILS ABSOLUTE AUTO 0.05 K/uL (0.00-0.20); BASOPHILS PERCENT AUTO 0.3 % (0.0-2.0); EOSINOPHILS ABSOLUTE AUTO 0.93 K/uL (0.00-0.50); HEMATOCRIT 42.4 % (34.0-46.0); HEMOGLOBIN 13.9 g/dL (11.7-15.5); LYMPHOCYTES ABSOLUTE AUTO 4.31 K/uL (0.50-3.50); MEAN CORPUSCULAR HEMOGLOBIN 30.8 pg (28.2-33.3); MEAN CORPUSCULAR HGB CONC 32.8 g/dL (31.7-36.0); MONOCYTES ABSOLUTE AUTO 0.93 K/uL (0.00-1.00); NEUTROPHILS PERCENT AUTO 59.7 % (45.0-80.0); PLATELET COUNT,PLT 475 K/uL (150-350); RED BLOOD CELL COUNT 4.51 M/uL (3.77-5.09); RED CELL DISTRIBUTION WIDTH 14.9 % (11.2-14.1); WHITE BLOOD CELL COUNT,WBC 15.4 K/uL (4.0-10.2)
[2023-03-28 22:52] LABS: ALANINE AMINOTRANSFERASE,ALT 18 U/L (12-78); ALBUMIN 3.4 g/dL (3.4-5.0); ALKALINE PHOSPHATASE 94 IU/L (46-116); ANION GAP 4.5 meq/L (7-15); ASPARTATE AMNIOTRANSFERASE,AST 20 U/L (15-37); BILIRUBIN TOTAL 0.2 mg/dL (0.2-1.0); BLOOD UREA NITROGEN,BUN 7 mg/dL (7-18); CARBON DIOXIDE,CO2 29.5 mmol/L (21.0-32.0); CHLORIDE,CL 106 mmol/L (98-107); CREATININE 0.83 mg/dL (0.51-1.17); GLUCOSE RANDOM 139 mg/dL (70-99); POTASSIUM,K 4.2 mmol/L (3.5-5.1); PROTEIN TOTAL,TP 7.4 g/dL (6.4-8.2); SODIUM,NA 140 mmol/L (136-145)
[2023-03-28 22:55] LABS: ESTIMATED GFR 90 mL/min (>=60)
[2023-03-28 23:04] LABS: CORONAVIRUS COVID-19 NAA NEGATIVE (NEGATIVE); INFLUENZA A NAA NEGATIVE (NEGATIVE); INFLUENZA B NAA NEGATIVE (NEGATIVE); RESPIRATORY SYNCYTIAL VIR NAA NEGATIVE (NEGATIVE)
[2023-03-28] MEDS ORDERED: Take Home: traMADol 50 MG, 4 Tab Pack PO ONE (23:35)
== END 2023-03-28 23:50 | disposition home or self-care (01) ==
LOC: LL.ED 21:47
DX: J06.9 Acute upper respiratory infection, unspecified (principal); K02.9 Dental caries, unspecified; I10 Essential (primary) hypertension; Z20.822 Contact with and (suspected) exposure to COVID-19; E78.00 Pure hypercholesterolemia, unspecified; E66.9 Obesity, unspecified; Z86.718 Personal history of other venous thrombosis and embolism; Z86.73 Personal history of transient ischemic attack (TIA), and cerebral infarction without residual deficits; Z79.899 Other long term (current) drug therapy; Z79.82 Long term (current) use of aspirin; Z79.01 Long term (current) use of anticoagulants
CPT/HCPCS: 0241U; 36415; 70486; 80053; 85025; 99284; A9270-GY

== ENCOUNTER 2023-05-31 18:42 | Emergency (ER) | payer MEDICARE, MEDICAID ==
[2023-05-31 19:41] LABS: BASOPHILS ABSOLUTE AUTO 0.05 K/uL (0.00-0.20); BASOPHILS PERCENT AUTO 0.3 % (0.0-2.0); EOSINOPHILS ABSOLUTE AUTO 1.02 K/uL (0.00-0.50); EOSINOPHILS PERCENT AUTO 6.3 % (0.0-5.0); HEMATOCRIT 40.7 % (34.0-46.0); HEMOGLOBIN 13.3 g/dL (11.7-15.5); LYMPHOCYTES ABSOLUTE AUTO 4.13 K/uL (0.50-3.50); LYMPHOCYTES PERCENT AUTO 25.7 % (10.0-50.0); MEAN CORPUSCULAR HEMOGLOBIN 30.7 pg (28.2-33.3); MEAN CORPUSCULAR HGB CONC 32.7 g/dL (31.7-36.0); MONOCYTES ABSOLUTE AUTO 0.88 K/uL (0.00-1.00); MONOCYTES PERCENT AUTO 5.5 % (2.0-14.0); NEUTROPHILS PERCENT AUTO 62.2 % (45.0-80.0); PLATELET COUNT,PLT 440 K/uL (150-350); RED BLOOD CELL COUNT 4.33 M/uL (3.77-5.09); RED CELL DISTRIBUTION WIDTH 14.9 % (11.2-14.1); WHITE BLOOD CELL COUNT,WBC 16.1 K/uL (4.0-10.2)
[2023-05-31 19:58] LABS: ALANINE AMINOTRANSFERASE,ALT 28 U/L (12-78); ALKALINE PHOSPHATASE 96 IU/L (46-116); ANION GAP 4.8 meq/L (7-15); ASPARTATE AMNIOTRANSFERASE,AST 11 U/L (15-37); BILIRUBIN TOTAL 0.3 mg/dL (0.2-1.0); BLOOD UREA NITROGEN,BUN 11 mg/dL (7-18); CALCIUM 10.6 mg/dL (8.5-10.1); CARBON DIOXIDE,CO2 29.2 mmol/L (21.0-32.0); CHLORIDE,CL 104 mmol/L (98-107); CREATININE 0.78 mg/dL (0.51-1.17); GLUCOSE RANDOM 139 mg/dL (70-99); POTASSIUM,K 3.9 mmol/L (3.5-5.1); PROTEIN TOTAL,TP 7.3 g/dL (6.4-8.2); SODIUM,NA 138 mmol/L (136-145)
[2023-05-31 19:59] LABS: ESTIMATED GFR 97 mL/min (>=60)
[2023-05-31 20:00] LABS: PROTHROMBIN TIME 9.6 SEC (9.0-11.1)
== END 2023-05-31 20:15 | disposition home or self-care (01) ==
LOC: LL.ED 18:42
DX: H11.31 Conjunctival hemorrhage, right eye (principal); I10 Essential (primary) hypertension; J45.909 Unspecified asthma, uncomplicated; E66.9 Obesity, unspecified; Z87.891 Personal history of nicotine dependence; Z79.82 Long term (current) use of aspirin; Z79.01 Long term (current) use of anticoagulants; Z79.899 Other long term (current) drug therapy
CPT/HCPCS: 36415; 80053; 85025; 85610; 99284

== ENCOUNTER 2023-06-21 12:46 | Emergency (ER) | payer MEDICARE, MEDICAID ==
[2023-06-21 13:34] LABS: BASOPHILS ABSOLUTE AUTO 0.05 K/uL (0.00-0.20); BASOPHILS PERCENT AUTO 0.3 % (0.0-2.0); EOSINOPHILS ABSOLUTE AUTO 1.36 K/uL (0.00-0.50); HEMATOCRIT 41.4 % (34.0-46.0); HEMOGLOBIN 13.6 g/dL (11.7-15.5); LYMPHOCYTES ABSOLUTE AUTO 3.92 K/uL (0.50-3.50); MEAN CORPUSCULAR HEMOGLOBIN 31.1 pg (28.2-33.3); MEAN CORPUSCULAR HGB CONC 32.9 g/dL (31.7-36.0); MEAN CORPUSCULAR VOLUME 94.7 fL (84.0-98.0); MONOCYTES ABSOLUTE AUTO 1.06 K/uL (0.00-1.00); MONOCYTES PERCENT AUTO 6.2 % (2.0-14.0); NEUTROPHILS ABSOLUTE AUTO 10.63 K/uL (1.40-7.00); NEUTROPHILS PERCENT AUTO 62.5 % (45.0-80.0); PLATELET COUNT,PLT 426 K/uL (150-350); RED BLOOD CELL COUNT 4.37 M/uL (3.77-5.09); RED CELL DISTRIBUTION WIDTH 14.6 % (11.2-14.1)
[2023-06-21 13:55] LABS: ALANINE AMINOTRANSFERASE,ALT 21 U/L (12-78); ALBUMIN 3.4 g/dL (3.4-5.0); ALKALINE PHOSPHATASE 98 IU/L (46-116); ANION GAP 9.4 meq/L (7-15); ASPARTATE AMNIOTRANSFERASE,AST 16 U/L (15-37); BILIRUBIN TOTAL 0.2 mg/dL (0.2-1.0); BLOOD UREA NITROGEN,BUN 8 mg/dL (7-18); CALCIUM 10.1 mg/dL (8.5-10.1); CARBON DIOXIDE,CO2 27.6 mmol/L (21.0-32.0); CHLORIDE,CL 102 mmol/L (98-107); CREATININE 0.75 mg/dL (0.51-1.17); ESTIMATED GFR 102 mL/min (>=60); GLUCOSE RANDOM 120 mg/dL (70-99); POTASSIUM,K 3.9 mmol/L (3.5-5.1); PROTEIN TOTAL,TP 7.6 g/dL (6.4-8.2); SODIUM,NA 139 mmol/L (136-145)
[2023-06-21] MEDS: methylPREDNISolone Sodium Succinate 125 MG/2 ML SDV IVPUSH ONE (14:27)
[2023-06-21] MEDS: Albuterol/Ipratropium 3.0-0.5 MG/3 ML Neb Soln NEB ONE (14:27)
[2023-06-21] MEDS: Azithromycin 500 MG in Sodium Chloride 0.9% 250 ML IV ONE (14:28)
[2023-06-21] MEDS: Sodium Chloride 0.9% 10 ML Syringe FLUSH ONE (15:45)
== END 2023-06-21 15:53 | disposition home or self-care (01) ==
LOC: SUPCPDRO 12:46 → LL.ED 12:46
DX: J45.41 Moderate persistent asthma with (acute) exacerbation (principal); J06.9 Acute upper respiratory infection, unspecified; I10 Essential (primary) hypertension; E78.00 Pure hypercholesterolemia, unspecified; E66.9 Obesity, unspecified; Z90.49 Acquired absence of other specified parts of digestive tract; Z90.710 Acquired absence of both cervix and uterus; Z79.82 Long term (current) use of aspirin; Z79.2 Long term (current) use of antibiotics; Z79.899 Other long term (current) drug therapy; Z87.891 Personal history of nicotine dependence
CPT/HCPCS: 36415; 80053; 85025; 85379; 94640; 96365; 96375; 99285; J0456; J1642; J2930; J7050; 99284; J3490; J7620-GY

== ENCOUNTER 2023-12-24 16:45 | Emergency (ER) | payer MEDICARE, MEDICAID ==
[2023-12-24 17:38] LABS: BASOPHILS ABSOLUTE AUTO 0.04 K/uL (0.00-0.20); BASOPHILS PERCENT AUTO 0.3 % (0.0-2.0); EOSINOPHILS ABSOLUTE AUTO 0.43 K/uL (0.00-0.50); EOSINOPHILS PERCENT AUTO 2.8 % (0.0-5.0); HEMATOCRIT 44.3 % (34.0-46.0); HEMOGLOBIN 14.8 g/dL (11.7-15.5); LYMPHOCYTES ABSOLUTE AUTO 3.36 K/uL (0.50-3.50); LYMPHOCYTES PERCENT AUTO 21.9 % (10.0-50.0); MEAN CORPUSCULAR HEMOGLOBIN 31.4 pg (28.2-33.3); MEAN CORPUSCULAR HGB CONC 33.4 g/dL (31.7-36.0); MEAN CORPUSCULAR VOLUME 94.1 fL (84.0-98.0); MONOCYTES ABSOLUTE AUTO 1.21 K/uL (0.00-1.00); MONOCYTES PERCENT AUTO 7.9 % (2.0-14.0); NEUTROPHILS ABSOLUTE AUTO 10.31 K/uL (1.40-7.00); NEUTROPHILS PERCENT AUTO 67.1 % (45.0-80.0); PLATELET COUNT,PLT 449 K/uL (150-350); RED BLOOD CELL COUNT 4.71 M/uL (3.77-5.09); RED CELL DISTRIBUTION WIDTH 14.8 % (11.2-14.1); WHITE BLOOD CELL COUNT,WBC 15.4 K/uL (4.0-10.2)
[2023-12-24 17:52] LABS: CALCIUM 10.9 mg/dL (8.5-10.1); CARBON DIOXIDE,CO2 28.4 mmol/L (21.0-32.0); CREATININE 1.02 mg/dL (0.51-1.17); EST CRCL DRUG DOSING (CG) 58.83 mL/min; POTASSIUM,K 3.4 mmol/L (3.5-5.1)
[2023-12-24] MEDS: Lactated Ringers 1,000 ML IV SCH (19:02)
[2023-12-24 19:26] LABS: CORONAVIRUS COVID-19 NAA NEGATIVE (NEGATIVE); INFLUENZA A NAA NEGATIVE (NEGATIVE); INFLUENZA B NAA NEGATIVE (NEGATIVE); RESPIRATORY SYNCYTIAL VIR NAA NEGATIVE (NEGATIVE)
== END 2023-12-24 20:41 | disposition home or self-care (01) ==
LOC: LL.ED 16:45
DX: R42 Dizziness and giddiness (principal); D72.829 Elevated white blood cell count, unspecified; R11.0 Nausea; I10 Essential (primary) hypertension; E78.00 Pure hypercholesterolemia, unspecified; J45.909 Unspecified asthma, uncomplicated; E66.9 Obesity, unspecified; Z86.73 Personal history of transient ischemic attack (TIA), and cerebral infarction without residual deficits; Z88.8 Allergy status to other drugs, medicaments and biological substances; Z79.899 Other long term (current) drug therapy; Z79.01 Long term (current) use of anticoagulants; Z68.44 Body mass index [BMI] 60.0-69.9, adult
CPT/HCPCS: 0241U; 36415; 71046; 80048; 83605; 84484; 85025; 87040; 93005; 94761; 96360; 99284; J1642; J7120; 93010

== ENCOUNTER 2024-02-22 15:01 | Emergency (ER) | payer MEDICARE, MEDICAID ==
[2024-02-22] MEDS: Sodium Chloride 0.9% 1,000 ML IV ONE ×3 (15:30→16:33)
[2024-02-22 15:36] LABS: BASOPHILS ABSOLUTE AUTO 0.05 K/uL (0.00-0.20); BASOPHILS PERCENT AUTO 0.3 % (0.0-2.0); EOSINOPHILS PERCENT AUTO 3.4 % (0.0-5.0); HEMATOCRIT 45.3 % (34.0-46.0); HEMOGLOBIN 15.3 g/dL (11.7-15.5); LYMPHOCYTES ABSOLUTE AUTO 3.69 K/uL (0.50-3.50); MEAN CORPUSCULAR HEMOGLOBIN 31.5 pg (28.2-33.3); MEAN CORPUSCULAR HGB CONC 33.8 g/dL (31.7-36.0); MEAN CORPUSCULAR VOLUME 93.4 fL (84.0-98.0); MONOCYTES ABSOLUTE AUTO 1.04 K/uL (0.00-1.00); MONOCYTES PERCENT AUTO 7.1 % (2.0-14.0); NEUTROPHILS ABSOLUTE AUTO 9.47 K/uL (1.40-7.00); NEUTROPHILS PERCENT AUTO 64.2 % (45.0-80.0); PLATELET COUNT,PLT 476 K/uL (150-350); RED BLOOD CELL COUNT 4.85 M/uL (3.77-5.09); RED CELL DISTRIBUTION WIDTH 14.2 % (11.2-14.1); WHITE BLOOD CELL COUNT,WBC 14.8 K/uL (4.0-10.2)
[2024-02-22] MEDS: Ondansetron 4 MG/2 ML SDV IVPUSH ONE ×2 (15:39→17:34)
[2024-02-22 15:53] LABS: ALANINE AMINOTRANSFERASE,ALT 33 U/L (12-78); ALBUMIN 3.3 g/dL (3.4-5.0); ALKALINE PHOSPHATASE 94 IU/L (46-116); ASPARTATE AMNIOTRANSFERASE,AST 26 U/L (15-37); BILIRUBIN TOTAL 0.3 mg/dL (0.2-1.0); BLOOD UREA NITROGEN,BUN 6 mg/dL (7-18); CALCIUM 10.5 mg/dL (8.5-10.1); CHLORIDE,CL 103 mmol/L (98-107); GLUCOSE RANDOM 119 mg/dL (70-99); POTASSIUM,K 3.6 mmol/L (3.5-5.1); PROTEIN TOTAL,TP 7.8 g/dL (6.4-8.2); SODIUM,NA 138 mmol/L (136-145)
[2024-02-22 16:09] LABS: ESTIMATED GFR 72 mL/min (>=60)
[2024-02-22 16:15] LABS: AMYLASE 28 U/L (25-115); LIPASE 20 U/L (16-77)
[2024-02-22] MEDS: Promethazine 25 MG/ML SDV IM ONE (17:34)
[2024-02-22] MEDS: Sodium Chloride 0.9% 10 ML Syringe FLUSH PRN (17:34)
== END 2024-02-22 18:00 | disposition home or self-care (01) ==
LOC: LL.ED 15:01
DX: R11.2 Nausea with vomiting, unspecified (principal); R19.7 Diarrhea, unspecified; E86.0 Dehydration; T38.3X5A Adverse effect of insulin and oral hypoglycemic [antidiabetic] drugs, initial encounter; I10 Essential (primary) hypertension; E66.9 Obesity, unspecified; Z90.49 Acquired absence of other specified parts of digestive tract; Z90.710 Acquired absence of both cervix and uterus; Z79.82 Long term (current) use of aspirin; Z79.01 Long term (current) use of anticoagulants; Z79.899 Other long term (current) drug therapy; Z88.8 Allergy status to other drugs, medicaments and biological substances; Z68.44 Body mass index [BMI] 60.0-69.9, adult
CPT/HCPCS: 36415; 74019; 80053; 82150; 83605; 83690; 83735; 85025; 96361; 96372; 96374; 96376; 99284; J2405; J2550; J7030; U0002; J3490

== ENCOUNTER 2024-04-26 18:55 | Emergency (ER) | payer MEDICARE, MEDICAID ==
[2024-04-26] MEDS: Albuterol/Ipratropium 3.0-0.5 MG/3 ML Neb Soln NEB ONE ×3 (19:00→19:20)
[2024-04-26] MEDS ORDERED: Sodium Chloride 0.9% 10 ML Syringe FLUSH PRN (19:08)
[2024-04-26] MEDS: methylPREDNISolone Sodium Succinate 125 MG/2 ML SDV IVPUSH ONE (19:11)
[2024-04-26 19:16] LABS: BASOPHILS ABSOLUTE AUTO 0.01 K/uL (0.00-0.20); BASOPHILS PERCENT AUTO 0.1 % (0.0-2.0); EOSINOPHILS ABSOLUTE AUTO 0.02 K/uL (0.00-0.50); EOSINOPHILS PERCENT AUTO 0.1 % (0.0-5.0); HEMATOCRIT 45.2 % (34.0-46.0); HEMOGLOBIN 15.1 g/dL (11.7-15.5); LYMPHOCYTES ABSOLUTE AUTO 1.19 K/uL (0.50-3.50); LYMPHOCYTES PERCENT AUTO 6.6 % (10.0-50.0); MEAN CORPUSCULAR HEMOGLOBIN 31.3 pg (28.2-33.3); MEAN CORPUSCULAR HGB CONC 33.4 g/dL (31.7-36.0); MEAN CORPUSCULAR VOLUME 93.8 fL (84.0-98.0); MONOCYTES ABSOLUTE AUTO 0.12 K/uL (0.00-1.00); MONOCYTES PERCENT AUTO 0.7 % (2.0-14.0); NEUTROPHILS ABSOLUTE AUTO 16.67 K/uL (1.40-7.00); NEUTROPHILS PERCENT AUTO 92.5 % (45.0-80.0); PLATELET COUNT,PLT 499 K/uL (150-350); RED BLOOD CELL COUNT 4.82 M/uL (3.77-5.09); RED CELL DISTRIBUTION WIDTH 15.2 % (11.2-14.1)
[2024-04-26] MEDS ORDERED: Naloxone 0.4 MG/ML SDV IVPUSH PRN (19:23)
[2024-04-26 19:39] LABS: LACTIC ACID 2.2 mmol/L (0.4-2.0)
[2024-04-26] MEDS: LORazepam 2 MG/ML SDV ONE (19:41)
[2024-04-26] MEDS: Morphine 2 MG/ML SYRINGE ONE (19:41)
[2024-04-26] MEDS: LORazepam 2 MG/ML SDV IVPUSH ONE (19:44)
[2024-04-26 19:45] LABS: PROTHROMBIN TIME 9.6 SEC (9.0-11.1)
[2024-04-26] MEDS: Morphine 2 MG/ML SYRINGE IVPUSH ONE ×3 (19:45→20:55)
[2024-04-26 19:58] LABS: CORONAVIRUS COVID-19 NAA NEGATIVE (NEGATIVE); INFLUENZA A NAA NEGATIVE (NEGATIVE); INFLUENZA B NAA NEGATIVE (NEGATIVE); RESPIRATORY SYNCYTIAL VIR NAA NEGATIVE (NEGATIVE)
[2024-04-26 20:00] LABS: CHLORIDE,CL 101 mmol/L (98-107); SODIUM,NA 134 mmol/L (136-145)
[2024-04-26 20:02] LABS: CARBON DIOXIDE,CO2 26.9 mmol/L (21.0-32.0)
[2024-04-26 20:03] LABS: ALANINE AMINOTRANSFERASE,ALT 18 U/L (12-78); ALBUMIN 3.2 g/dL (3.4-5.0); ALKALINE PHOSPHATASE 107 IU/L (46-116); ANION GAP 1.9 meq/L (7-15); ASPARTATE AMNIOTRANSFERASE,AST 9 U/L (15-37); BILIRUBIN TOTAL 0.2 mg/dL (0.2-1.0); BLOOD UREA NITROGEN,BUN 9 mg/dL (7-18); CALCIUM 10.3 mg/dL (8.5-10.1); CREATININE 1.01 mg/dL (0.51-1.17); ESTIMATED GFR 71 mL/min (>=60); GLUCOSE RANDOM 234 mg/dL (70-99); MAGNESIUM 1.6 mg/dL (1.8-2.4); PRO B-TYPE NATRIUR PEPT,BNPPRO 14 pg/mL (0-125); PROTEIN TOTAL,TP 8.1 g/dL (6.4-8.2)
[2024-04-26] MEDS: Iopamidol 755 Mg/ML 100 ML Bottle IVPUSH ONE (20:34)
== END 2024-04-26 21:00 ==
LOC: LL.ED 18:55
DX: F41.9 Anxiety disorder, unspecified (principal); R06.02 Shortness of breath; C43.9 Malignant melanoma of skin, unspecified; C79.2 Secondary malignant neoplasm of skin; G89.29 Other chronic pain; I10 Essential (primary) hypertension; E78.00 Pure hypercholesterolemia, unspecified; J45.909 Unspecified asthma, uncomplicated; E66.9 Obesity, unspecified; Z90.710 Acquired absence of both cervix and uterus; Z79.899 Other long term (current) drug therapy; Z79.01 Long term (current) use of anticoagulants; Z88.8 Allergy status to other drugs, medicaments and biological substances
CPT/HCPCS: 0241U; 36415; 71045; 80053; 83605; 83735; 83880; 84484; 85025; 85610; 93005; 93010; 94640; 94761; 96374; 96375; 96376; 99284; 99285-25; J2060; J2270; J2919; J7620-GY

== ENCOUNTER 2024-05-17 22:07 | Emergency (ER) | payer MEDICARE, MEDICAID ==
[2024-05-17] MEDS ORDERED: Sodium Chloride 0.9% 1,000 ML IV ONE (22:30)
[2024-05-17] MEDS ORDERED: Ketorolac 30 MG/ML SDV IM ONE (22:47)
[2024-05-17 23:01] LABS: BASOPHILS ABSOLUTE AUTO 0.05 K/uL (0.00-0.20); BASOPHILS PERCENT AUTO 0.3 % (0.0-2.0); EOSINOPHILS ABSOLUTE AUTO 0.83 K/uL (0.00-0.50); EOSINOPHILS PERCENT AUTO 5.1 % (0.0-5.0); HEMATOCRIT 29.9 % (34.0-46.0); HEMOGLOBIN 9.4 g/dL (11.7-15.5); LYMPHOCYTES ABSOLUTE AUTO 4.49 K/uL (0.50-3.50); LYMPHOCYTES PERCENT AUTO 27.5 % (10.0-50.0); MEAN CORPUSCULAR HEMOGLOBIN 31.4 pg (28.2-33.3); MEAN CORPUSCULAR HGB CONC 31.4 g/dL (31.7-36.0); MONOCYTES ABSOLUTE AUTO 0.93 K/uL (0.00-1.00); MONOCYTES PERCENT AUTO 5.7 % (2.0-14.0); NEUTROPHILS ABSOLUTE AUTO 10.01 K/uL (1.40-7.00); NEUTROPHILS PERCENT AUTO 61.4 % (45.0-80.0); PLATELET COUNT,PLT 591 K/uL (150-350); RED BLOOD CELL COUNT 2.99 M/uL (3.77-5.09); RED CELL DISTRIBUTION WIDTH 17.2 % (11.2-14.1); WHITE BLOOD CELL COUNT,WBC 16.3 K/uL (4.0-10.2)
[2024-05-17] MEDS: Ketorolac 30 MG/ML SDV IVPUSH ONE (23:07)
[2024-05-17] MEDS: Sodium Chloride 0.9% 10 ML Syringe FLUSH PRN (23:12)
[2024-05-17 23:14] LABS: ALANINE AMINOTRANSFERASE,ALT 28 U/L (12-78); ALBUMIN 2.7 g/dL (3.4-5.0); ALKALINE PHOSPHATASE 97 IU/L (46-116); ANION GAP 9.1 meq/L (7-15); ASPARTATE AMNIOTRANSFERASE,AST 12 U/L (15-37); BILIRUBIN TOTAL 0.3 mg/dL (0.2-1.0); BLOOD UREA NITROGEN,BUN 9 mg/dL (7-18); CARBON DIOXIDE,CO2 25.9 mmol/L (21.0-32.0); CHLORIDE,CL 105 mmol/L (98-107); CREATININE 0.85 mg/dL (0.51-1.17); ESTIMATED GFR 87 mL/min (>=60); GLUCOSE RANDOM 121 mg/dL (70-99); POTASSIUM,K 3.8 mmol/L (3.5-5.1); PROTEIN TOTAL,TP 6.8 g/dL (6.4-8.2); SODIUM,NA 140 mmol/L (136-145)
== END 2024-05-17 23:40 | disposition home or self-care (01) ==
LOC: LL.ED 22:07
DX: G89.18 Other acute postprocedural pain (principal); R07.89 Other chest pain; I10 Essential (primary) hypertension; E66.9 Obesity, unspecified; Z90.49 Acquired absence of other specified parts of digestive tract; Z90.710 Acquired absence of both cervix and uterus; Z79.899 Other long term (current) drug therapy; Z79.82 Long term (current) use of aspirin; Z79.01 Long term (current) use of anticoagulants; Z88.8 Allergy status to other drugs, medicaments and biological substances
CPT/HCPCS: 36415; 80053; 83605; 85025; 96374; 99283; 99283-25; J1885; J3490

== ENCOUNTER 2024-06-08 16:34 | Emergency (ER) | payer MEDICARE, MEDICAID ==
[2024-06-08] MEDS: Take Home: metroNIDAZOLE 500 MG Tab, 6 Tab Pack PO ONE (16:55)
[2024-06-08] MEDS: Take Home: Levofloxacin 500 MG Tab, 3 Tab Pack PO ONE (16:55)
== END 2024-06-08 17:03 | disposition home or self-care (01) ==
LOC: LL.ED 16:34
DX: K04.7 Periapical abscess without sinus (principal); I10 Essential (primary) hypertension; E66.9 Obesity, unspecified; Z90.49 Acquired absence of other specified parts of digestive tract; Z90.710 Acquired absence of both cervix and uterus; Z79.01 Long term (current) use of anticoagulants; Z79.899 Other long term (current) drug therapy; Z79.82 Long term (current) use of aspirin; Z88.8 Allergy status to other drugs, medicaments and biological substances; Z68.44 Body mass index [BMI] 60.0-69.9, adult
CPT/HCPCS: 99283; A9270

== ENCOUNTER 2024-07-20 23:31 | Emergency (ER) | payer MEDICARE, MEDICAID ==
[2024-07-21] MEDS: predniSONE 20 MG Tab PO ONE (00:32)
[2024-07-21] MEDS: Azithromycin 250 MG Tab PO ONE (00:32)
== END 2024-07-21 00:50 | disposition home or self-care (01) ==
LOC: LL.ED 23:31
DX: J02.9 Acute pharyngitis, unspecified (principal); R09.81 Nasal congestion; R05.9 Cough, unspecified; R51.9 Headache, unspecified; R19.7 Diarrhea, unspecified; I10 Essential (primary) hypertension; E78.00 Pure hypercholesterolemia, unspecified; J45.909 Unspecified asthma, uncomplicated; E66.9 Obesity, unspecified; Z90.710 Acquired absence of both cervix and uterus; Z79.899 Other long term (current) drug therapy; Z79.01 Long term (current) use of anticoagulants; Z79.82 Long term (current) use of aspirin; Z88.8 Allergy status to other drugs, medicaments and biological substances; Z86.73 Personal history of transient ischemic attack (TIA), and cerebral infarction without residual deficits
CPT/HCPCS: 71046; 87428-QW; 99283; 99284; A9270-GY; J7512

== ENCOUNTER 2024-07-26 13:55 | Emergency (ER) | payer MEDICARE, MEDICAID ==
[2024-07-26 14:21] LABS: BASOPHILS ABSOLUTE AUTO 0.02 K/uL (0.00-0.20); BASOPHILS PERCENT AUTO 0.1 % (0.0-2.0); HEMATOCRIT 36.6 % (34.0-46.0); HEMOGLOBIN 11.5 g/dL (11.7-15.5); IMMATURE GRAN ABSOLUTE AUTO 0.05 10^3/uL (0.00-0.04); IMMATURE GRAN PERCENT AUTO 0.3 % (0.0-0.4); LYMPHOCYTES ABSOLUTE AUTO 0.87 K/uL (0.50-3.50); LYMPHOCYTES PERCENT AUTO 4.7 % (10.0-50.0); MEAN CORPUSCULAR HEMOGLOBIN 28.1 pg (28.2-33.3); MEAN CORPUSCULAR HGB CONC 31.4 g/dL (31.7-36.0); MEAN CORPUSCULAR VOLUME 89.5 fL (84.0-98.0); MONOCYTES ABSOLUTE AUTO 0.69 K/uL (0.00-1.00); MONOCYTES PERCENT AUTO 3.7 % (2.0-14.0); NEUTROPHILS ABSOLUTE AUTO 16.83 K/uL (1.40-7.00); NEUTROPHILS PERCENT AUTO 91.2 % (45.0-80.0); PLATELET COUNT,PLT 466 K/uL (150-350); RED BLOOD CELL COUNT 4.09 M/uL (3.77-5.09); RED CELL DISTRIBUTION WIDTH 16.3 % (11.2-14.1); WHITE BLOOD CELL COUNT,WBC 18.5 K/uL (4.0-10.2)
[2024-07-26] MEDS: Albuterol/Ipratropium 3.0-0.5 MG/3 ML Neb Soln NEB ONE (14:27)
[2024-07-26 14:35] LABS: HCO3 VENOUS,POC 30 mmol/L (23-28); O2 SATURATION VENOUS,POC 66 %; PH VENOUS,POC 7.37 (7.31-7.41); PO2 VENOUS,POC 36 mmHg
[2024-07-26 14:36] LABS: PCO2 VENOUS,POC 52 mmHg (41-51)
[2024-07-26 14:42] LABS: LACTIC ACID 1.7 mmol/L (0.4-2.0)
[2024-07-26 14:44] LABS: ANION GAP 6.3 meq/L (7-15); BILIRUBIN TOTAL 0.2 mg/dL (0.2-1.0); CALCIUM 9.9 mg/dL (8.5-10.1); CARBON DIOXIDE,CO2 28.7 mmol/L (21.0-32.0); CREATININE 0.81 mg/dL (0.51-1.17); EST CRCL DRUG DOSING (CG) 74.08 mL/min; MAGNESIUM 1.9 mg/dL (1.8-2.4); POTASSIUM,K 3.8 mmol/L (3.5-5.1)
[2024-07-26 15:07] LABS: CORONAVIRUS COVID-19 NAA NEGATIVE (NEGATIVE); INFLUENZA A NAA NEGATIVE (NEGATIVE); INFLUENZA B NAA NEGATIVE (NEGATIVE); RESPIRATORY SYNCYTIAL VIR NAA NEGATIVE (NEGATIVE)
[2024-07-26] MEDS: LORazepam 0.5 MG Tab PO ONE (17:12)
[2024-07-26] MEDS: Sodium Chloride 0.9% 10 ML Syringe FLUSH PRN (17:12)
== END 2024-07-26 17:22 | disposition home or self-care (01) ==
LOC: LL.ED 13:55
DX: B34.9 Viral infection, unspecified (principal); I10 Essential (primary) hypertension; J45.909 Unspecified asthma, uncomplicated; E66.9 Obesity, unspecified; Z86.73 Personal history of transient ischemic attack (TIA), and cerebral infarction without residual deficits; Z90.49 Acquired absence of other specified parts of digestive tract; Z90.710 Acquired absence of both cervix and uterus; Z88.8 Allergy status to other drugs, medicaments and biological substances; Z79.51 Long term (current) use of inhaled steroids; Z79.82 Long term (current) use of aspirin; Z79.01 Long term (current) use of anticoagulants; Z79.52 Long term (current) use of systemic steroids; Z79.899 Other long term (current) drug therapy; Z68.44 Body mass index [BMI] 60.0-69.9, adult
CPT/HCPCS: 0241U; 36415; 71045; 80053; 82803; 83605; 83735; 83880; 85025; 85379; 94640; 94761; 99285; A9270; J1642; 99283; J7620-GY

== ENCOUNTER 2024-07-28 13:43 | Observation (INO) | payer MEDICARE, MEDICAID ==
[2024-07-28 14:41] LABS: BASOPHILS ABSOLUTE AUTO 0.01 K/uL (0.00-0.20); EOSINOPHILS ABSOLUTE AUTO 0.01 K/uL (0.00-0.50); HEMATOCRIT 36.3 % (34.0-46.0); HEMOGLOBIN 11.5 g/dL (11.7-15.5); IMMATURE GRAN ABSOLUTE AUTO 0.05 10^3/uL (0.00-0.04); IMMATURE GRAN PERCENT AUTO 0.2 % (0.0-0.4); LYMPHOCYTES ABSOLUTE AUTO 0.81 K/uL (0.50-3.50); LYMPHOCYTES PERCENT AUTO 3.7 % (10.0-50.0); MEAN CORPUSCULAR HGB CONC 31.7 g/dL (31.7-36.0); MEAN CORPUSCULAR VOLUME 88.5 fL (84.0-98.0); MONOCYTES ABSOLUTE AUTO 0.71 K/uL (0.00-1.00); MONOCYTES PERCENT AUTO 3.2 % (2.0-14.0); NEUTROPHILS ABSOLUTE AUTO 20.29 K/uL (1.40-7.00); NEUTROPHILS PERCENT AUTO 92.9 % (45.0-80.0); PLATELET COUNT,PLT 493 K/uL (150-350); RED CELL DISTRIBUTION WIDTH 16.4 % (11.2-14.1); WHITE BLOOD CELL COUNT,WBC 21.9 K/uL (4.0-10.2)
[2024-07-28 15:10] LABS: ALANINE AMINOTRANSFERASE,ALT 25 U/L (12-78); ALBUMIN 2.8 g/dL (3.4-5.0); ALKALINE PHOSPHATASE 98 IU/L (46-116); ASPARTATE AMNIOTRANSFERASE,AST 13 U/L (15-37); BILIRUBIN TOTAL 0.3 mg/dL (0.2-1.0); BLOOD UREA NITROGEN,BUN 9 mg/dL (7-18); CALCIUM 9.7 mg/dL (8.5-10.1); CHLORIDE,CL 104 mmol/L (98-107); CREATININE 0.84 mg/dL (0.51-1.17); GLUCOSE RANDOM 161 mg/dL (70-99); MAGNESIUM 1.9 mg/dL (1.8-2.4); PRO B-TYPE NATRIUR PEPT,BNPPRO 45 pg/mL (0-125); PROTEIN TOTAL,TP 7.2 g/dL (6.4-8.2); SODIUM,NA 140 mmol/L (136-145)
[2024-07-28 15:12] LABS: PROTHROMBIN TIME 9.9 SEC (9.0-11.1)
[2024-07-28 15:15] LABS: ESTIMATED GFR 88 mL/min (>=60)
[2024-07-28 15:16] LABS: PCO2 ARTERIAL,POC 45 mmHg (35-48); PH ARTERIAL,POC 7.4 pH (7.35-7.45)
[2024-07-28 15:18] LABS: HCO3 ARTERIAL,POC 25.5 mmol/L (22-26); O2 SATURATION ARTERIAL,POC 92.1 % (95-98); PO2 ARTERIAL,POC 67 mmHg (83-108); TCO2 ARTERIAL,POC 24.7 mmol/L (23-27)
[2024-07-28 15:19] LABS: APPEARANCE,URINE CLEAR; BILIRUBIN,URINE NEGATIVE (NEGATIVE); COLOR,URINE YELLOW; GLUCOSE,URINE NEGATIVE (NEGATIVE); KETONES,URINE NEGATIVE (NEGATIVE); LEUKOCYTE ESTERASE,URINE NEGATIVE (NEGATIVE); NITRITE,URINE NEGATIVE (NEGATIVE); OCCULT BLOOD,URINE TRACE-LYSED (NEGATIVE); PH,URINE 7.5 (5.0-9.0); PROTEIN,URINE NEGATIVE (NEGATIVE); UROBILINOGEN,URINE 0.2 E.U./dL (0.2-1.0)
[2024-07-28 15:26] LABS: AMORPHOUS SEDIMENT,URINE FEW /HPF (0/HPF); BACTERIA,URINE NOT SEEN /HPF (NONE TO FEW); EPITHELIAL CELLS,URINE FEW /LPF; MUCUS,URINE NOT SEEN /LPF (NEGATIVE); RBC,URINE 0-5 /HPF; WBC,URINE NOT SEEN /HPF
[2024-07-28] MEDS: Sodium Chloride 0.9% 10 ML Syringe FLUSH PRN (15:53)
[2024-07-28] MEDS: Albuterol/Ipratropium 3.0-0.5 MG/3 ML Neb Soln NEB PRN (17:08)
[2024-07-28] MEDS ORDERED: Ibuprofen 600 MG Tab PO PRN (19:17)
[2024-07-28] MEDS ORDERED: TAFINLAR 75 MG PO SCH (20:00)
[2024-07-28] MEDS ORDERED: Prochlorperazine 5 MG Tab PO PRN (20:44)
[2024-07-28] MEDS ORDERED: Loperamide 2 MG Tab PO PRN (20:52)
[2024-07-28] MEDS: DULoxetine 20 MG Cap PO SCH (21:14)
[2024-07-28] MEDS: Apixaban 5 MG Tab PO SCH (21:14)
[2024-07-28] MEDS: HYDROmorphone 2 MG Tab PO PRN (21:15)
[2024-07-29] MEDS: Formoterol/Mometasone 200-5 MCG 8.8 GM Inhaler INH SCH (07:01)
[2024-07-29] MEDS: Topiramate 25 MG Tab PO SCH (07:03)
[2024-07-29] MEDS: Gabapentin 300 MG Cap PO SCH (07:04)
[2024-07-29] MEDS: Aspirin 81 MG Tab.EC PO SCH (07:04)
[2024-07-29] MEDS: Montelukast 10 MG Tab PO SCH (07:04)
[2024-07-29] MEDS: Cholecalciferol (Vitamin D3) 25 MCG Tab PO SCH (07:05)
[2024-07-29] MEDS: metFORMIN 500 MG Tab PO SCH (07:05)
[2024-07-29] MEDS: Magnesium Oxide 400 MG Tab PO SCH (07:06)
[2024-07-29] MEDS: Lisinopril 5 MG Tab PO SCH (07:07)
[2024-07-29 07:23] LABS: BASOPHILS ABSOLUTE AUTO 0.01 K/uL (0.00-0.20); BASOPHILS PERCENT AUTO 0.1 % (0.0-2.0); EOSINOPHILS ABSOLUTE AUTO 0.07 K/uL (0.00-0.50); EOSINOPHILS PERCENT AUTO 0.4 % (0.0-5.0); HEMATOCRIT 36.6 % (34.0-46.0); HEMOGLOBIN 11.4 g/dL (11.7-15.5); IMMATURE GRAN ABSOLUTE AUTO 0.05 10^3/uL (0.00-0.04); IMMATURE GRAN PERCENT AUTO 0.3 % (0.0-0.4); LYMPHOCYTES ABSOLUTE AUTO 2.89 K/uL (0.50-3.50); LYMPHOCYTES PERCENT AUTO 16.2 % (10.0-50.0); MEAN CORPUSCULAR HEMOGLOBIN 27.7 pg (28.2-33.3); MEAN CORPUSCULAR HGB CONC 31.1 g/dL (31.7-36.0); MEAN CORPUSCULAR VOLUME 89.1 fL (84.0-98.0); MONOCYTES ABSOLUTE AUTO 0.77 K/uL (0.00-1.00); MONOCYTES PERCENT AUTO 4.3 % (2.0-14.0); NEUTROPHILS PERCENT AUTO 78.7 % (45.0-80.0); PLATELET COUNT,PLT 531 K/uL (150-350); RED BLOOD CELL COUNT 4.11 M/uL (3.77-5.09); RED CELL DISTRIBUTION WIDTH 16.4 % (11.2-14.1); WHITE BLOOD CELL COUNT,WBC 17.9 K/uL (4.0-10.2)
[2024-07-29] MEDS ORDERED: Non-Formulary Medication 1 Each (Cinacalcet [Sensipar] 30 MG Tablet) PO SCH (07:30)
[2024-07-29] MEDS ORDERED: LORazepam 1 MG Tab PO PRN ×2 (07:59→12:00)
[2024-07-29] MEDS ORDERED: MEKINIST 2 MG PO SCH (08:00)
[2024-07-29] MEDS: LORazepam 0.5 MG Tab PO ONE (08:26)
[2024-07-29] MEDS: Sodium Chloride 0.9% 10 ML Syringe FLUSH PRN (08:28)
[2024-07-29 08:47] LABS: PROTHROMBIN TIME 9.8 SEC (9.0-11.1)
[2024-07-29 09:01] LABS: ALANINE AMINOTRANSFERASE,ALT 19 U/L (12-78); ALBUMIN 2.7 g/dL (3.4-5.0); ALKALINE PHOSPHATASE 100 IU/L (46-116); ASPARTATE AMNIOTRANSFERASE,AST 12 U/L (15-37); BILIRUBIN TOTAL 0.3 mg/dL (0.2-1.0); BLOOD UREA NITROGEN,BUN 17 mg/dL (7-18); CALCIUM 9.7 mg/dL (8.5-10.1); CARBON DIOXIDE,CO2 32.2 mmol/L (21.0-32.0); CHLORIDE,CL 103 mmol/L (98-107); CREATININE 0.77 mg/dL (0.51-1.17); EST CRCL DRUG DOSING (CG) 77.12 mL/min; GLUCOSE RANDOM 89 mg/dL (70-99); MAGNESIUM 2.1 mg/dL (1.8-2.4); PROTEIN TOTAL,TP 7.3 g/dL (6.4-8.2); SODIUM,NA 142 mmol/L (136-145)
[2024-07-29 09:13] LABS: ANION GAP 10.8 meq/L (7-15); ESTIMATED GFR 97 mL/min (>=60)
[2024-07-29] MEDS ORDERED: LORazepam 0.5 MG Tab PO PRN (12:00)
== END 2024-07-29 15:23 | disposition home or self-care (01) ==
LOC: LL.ED 13:43 → SUPCPDRO 13:43 → LL.MS 15:31
PROVIDERS: ADMIT Physician Assistant; ATTEND Physician Assistant
DX: R09.02 Hypoxemia (principal); R06.00 Dyspnea, unspecified; J44.9 Chronic obstructive pulmonary disease, unspecified; F41.9 Anxiety disorder, unspecified; B34.9 Viral infection, unspecified; C43.9 Malignant melanoma of skin, unspecified; I10 Essential (primary) hypertension; E78.00 Pure hypercholesterolemia, unspecified; E66.813 Obesity, class 3; Z79.82 Long term (current) use of aspirin; Z79.899 Other long term (current) drug therapy
CPT/HCPCS: 36415; 71046; 80053; 81001; 82803; 83605; 83735; 83880; 84484; 85025; 85610; 87428-QW; 93005; 94640; 94761; 99223; 99239; 99285; A9270-GY; G0378; J7620-GY

== ENCOUNTER 2024-09-05 18:50 | Emergency (ER) | payer MEDICARE, MEDICAID ==
[2024-09-05 19:45] LABS: APPEARANCE,URINE SLIGHTLY CLOUDY; BILIRUBIN,URINE NEGATIVE (NEGATIVE); COLOR,URINE DARK YELLOW; GLUCOSE,URINE NEGATIVE (NEGATIVE); KETONES,URINE TRACE mg/dL (NEGATIVE); LEUKOCYTE ESTERASE,URINE NEGATIVE (NEGATIVE); NITRITE,URINE NEGATIVE (NEGATIVE); OCCULT BLOOD,URINE NEGATIVE (NEGATIVE); PH,URINE 6.5 (5.0-9.0); PROTEIN,URINE 30 mg/dL (NEGATIVE); UROBILINOGEN,URINE 0.2 E.U./dL (0.2-1.0)
[2024-09-05 19:52] LABS: RBC,URINE 0-5 /HPF
[2024-09-05 19:53] LABS: AMORPHOUS SEDIMENT,URINE FEW /HPF (0/HPF); BACTERIA,URINE FEW /HPF (NONE TO FEW); EPITHELIAL CELLS,URINE MANY /LPF; MUCUS,URINE MANY /LPF (NEGATIVE); WBC,URINE 0-5 /HPF
[2024-09-05] MEDS: Take Home: predniSONE 20 MG, 4 Tab Pack PO ONE (20:44)
[2024-09-05 20:56] VITALS: BP 101/58; PULSE 92
== END 2024-09-05 21:00 | disposition home or self-care (01) ==
LOC: LL.ED 18:50
DX: R50.9 Fever, unspecified (principal); T39.1X5A Adverse effect of 4-Aminophenol derivatives, initial encounter; I10 Essential (primary) hypertension; J44.89 Other specified chronic obstructive pulmonary disease; E78.00 Pure hypercholesterolemia, unspecified; E66.9 Obesity, unspecified; Z68.43 Body mass index [BMI] 50.0-59.9, adult; Z88.8 Allergy status to other drugs, medicaments and biological substances; Z79.82 Long term (current) use of aspirin; Z79.84 Long term (current) use of oral hypoglycemic drugs; Z79.899 Other long term (current) drug therapy; Z90.49 Acquired absence of other specified parts of digestive tract; Z90.710 Acquired absence of both cervix and uterus
CPT/HCPCS: 81001; 87428-QW; 99283; A9270-GY

== ENCOUNTER 2024-09-07 02:51 | Emergency (ER) | payer MEDICARE, MEDICAID | END 2024-09-07 03:05 | LOC: LL.ED 02:51 | DX: Z53.21 Procedure and treatment not carried out due to patient leaving prior to being seen by health care provider (principal) ==

== ENCOUNTER 2024-10-16 00:28 | Emergency (ER) | payer MEDICARE, MEDICAID ==
[2024-10-16 01:33] LABS: BASOPHILS ABSOLUTE AUTO 0.03 K/uL (0.00-0.20); BASOPHILS PERCENT AUTO 0.3 % (0.0-2.0); EOSINOPHILS ABSOLUTE AUTO 0.35 K/uL (0.00-0.50); EOSINOPHILS PERCENT AUTO 3.5 % (0.0-5.0); HEMATOCRIT 37.2 % (34.0-46.0); HEMOGLOBIN 11.9 g/dL (11.7-15.5); IMMATURE GRAN ABSOLUTE AUTO 0.09 10^3/uL (0.00-0.04); IMMATURE GRAN PERCENT AUTO 0.9 % (0.0-0.4); LYMPHOCYTES ABSOLUTE AUTO 2.07 K/uL (0.50-3.50); LYMPHOCYTES PERCENT AUTO 20.5 % (10.0-50.0); MEAN CORPUSCULAR HEMOGLOBIN 28.6 pg (28.2-33.3); MEAN CORPUSCULAR VOLUME 89.4 fL (84.0-98.0); MONOCYTES ABSOLUTE AUTO 0.58 K/uL (0.00-1.00); MONOCYTES PERCENT AUTO 5.7 % (2.0-14.0); NEUTROPHILS ABSOLUTE AUTO 6.98 K/uL (1.40-7.00); NEUTROPHILS PERCENT AUTO 69.1 % (45.0-80.0); PLATELET COUNT,PLT 237 K/uL (150-350); RED BLOOD CELL COUNT 4.16 M/uL (3.77-5.09); RED CELL DISTRIBUTION WIDTH 21.1 % (11.2-14.1); WHITE BLOOD CELL COUNT,WBC 10.1 K/uL (4.0-10.2)
[2024-10-16 01:35] LABS: ANION GAP 15.1 meq/L (7-15); BLOOD UREA NITROGEN,BUN 10 mg/dL (7-18); CALCIUM 9.5 mg/dL (8.5-10.1); CARBON DIOXIDE,CO2 21.8 mmol/L (21.0-32.0); CHLORIDE,CL 105 mmol/L (98-107); CREATININE 0.61 mg/dL (0.51-1.17); ESTIMATED GFR 113 mL/min (>=60); GLUCOSE RANDOM 115 mg/dL (70-99); POTASSIUM,K 3.9 mmol/L (3.5-5.1); SODIUM,NA 138 mmol/L (136-145)
== END 2024-10-16 02:01 | disposition home or self-care (01) ==
LOC: LL.ED 00:28
DX: R11.2 Nausea with vomiting, unspecified (principal); J44.89 Other specified chronic obstructive pulmonary disease; E66.9 Obesity, unspecified; Z86.73 Personal history of transient ischemic attack (TIA), and cerebral infarction without residual deficits; Z90.49 Acquired absence of other specified parts of digestive tract; Z90.710 Acquired absence of both cervix and uterus; Z88.8 Allergy status to other drugs, medicaments and biological substances; Z79.51 Long term (current) use of inhaled steroids; Z79.82 Long term (current) use of aspirin; Z79.84 Long term (current) use of oral hypoglycemic drugs; Z79.899 Other long term (current) drug therapy
CPT/HCPCS: 36415; 80048; 83605; 85025; 99284

== ENCOUNTER 2024-12-21 03:50 | Emergency (ER) | payer MEDICARE, MEDICAID ==
[2024-12-21] MEDS: Nitroglycerin 0.4 MG Tab.SL SL PRN (04:02)
[2024-12-21] MEDS: Aspirin 81 MG Tab.Chew PO ONE (04:02)
[2024-12-21] MEDS: Aspirin 81 MG Tab.Chew ONE (04:25)
[2024-12-21] MEDS: Nitroglycerin 0.4 MG Tab.SL ONE (04:25)
[2024-12-21 04:33] LABS: BASOPHILS ABSOLUTE AUTO 0.03 K/uL (0.00-0.20); BASOPHILS PERCENT AUTO 0.3 % (0.0-2.0); EOSINOPHILS ABSOLUTE AUTO 0.58 K/uL (0.00-0.50); EOSINOPHILS PERCENT AUTO 5.4 % (0.0-5.0); HEMATOCRIT 39.5 % (34.0-46.0); HEMOGLOBIN 12.8 g/dL (11.7-15.5); IMMATURE GRAN ABSOLUTE AUTO 0.02 10^3/uL (0.00-0.04); IMMATURE GRAN PERCENT AUTO 0.2 % (0.0-0.4); LYMPHOCYTES ABSOLUTE AUTO 3.03 K/uL (0.50-3.50); LYMPHOCYTES PERCENT AUTO 28.4 % (10.0-50.0); MEAN CORPUSCULAR HGB CONC 32.4 g/dL (31.7-36.0); MEAN CORPUSCULAR VOLUME 86.4 fL (84.0-98.0); MONOCYTES ABSOLUTE AUTO 0.74 K/uL (0.00-1.00); MONOCYTES PERCENT AUTO 6.9 % (2.0-14.0); NEUTROPHILS ABSOLUTE AUTO 6.28 K/uL (1.40-7.00); NEUTROPHILS PERCENT AUTO 58.8 % (45.0-80.0); PLATELET COUNT,PLT 456 K/uL (150-350); RED BLOOD CELL COUNT 4.57 M/uL (3.77-5.09); WHITE BLOOD CELL COUNT,WBC 10.7 K/uL (4.0-10.2)
[2024-12-21 04:52] LABS: ALANINE AMINOTRANSFERASE,ALT 21 U/L (12-78); ALBUMIN 3.1 g/dL (3.4-5.0); ALKALINE PHOSPHATASE 104 IU/L (46-116); ASPARTATE AMNIOTRANSFERASE,AST 14 U/L (15-37); BILIRUBIN TOTAL 0.2 mg/dL (0.2-1.0); BLOOD UREA NITROGEN,BUN 15 mg/dL (7-18); CALCIUM 9.6 mg/dL (8.5-10.1); CHLORIDE,CL 101 mmol/L (98-107); CREATININE 0.84 mg/dL (0.51-1.17); ESTIMATED GFR 88 mL/min (>=60); GLUCOSE RANDOM 137 mg/dL (70-99); MAGNESIUM 1.6 mg/dL (1.8-2.4); POTASSIUM,K 3.8 mmol/L (3.5-5.1); PROTEIN TOTAL,TP 6.9 g/dL (6.4-8.2); SODIUM,NA 136 mmol/L (136-145)
== END 2024-12-21 05:20 | disposition home or self-care (01) ==
LOC: LL.ED 03:50
DX: R07.89 Other chest pain (principal); I10 Essential (primary) hypertension; E78.00 Pure hypercholesterolemia, unspecified; J44.89 Other specified chronic obstructive pulmonary disease; E66.9 Obesity, unspecified; Z90.49 Acquired absence of other specified parts of digestive tract; Z90.710 Acquired absence of both cervix and uterus; Z79.899 Other long term (current) drug therapy; Z79.82 Long term (current) use of aspirin; Z79.84 Long term (current) use of oral hypoglycemic drugs; Z88.8 Allergy status to other drugs, medicaments and biological substances
CPT/HCPCS: 36415; 71045; 80053; 83735; 84484; 85025; 85730; 93005; 93010; 99284; 99285; A9270-GY; J1642

== ENCOUNTER 2025-01-21 22:11 | Emergency (ER) | payer MEDICARE, MEDICAID ==
[2025-01-21 22:39] LABS: BASOPHILS ABSOLUTE AUTO 0.03 K/uL (0.00-0.20); BASOPHILS PERCENT AUTO 0.3 % (0.0-2.0); EOSINOPHILS ABSOLUTE AUTO 0.55 K/uL (0.00-0.50); EOSINOPHILS PERCENT AUTO 4.9 % (0.0-5.0); IMMATURE GRAN ABSOLUTE AUTO 0.02 10^3/uL (0.00-0.04); IMMATURE GRAN PERCENT AUTO 0.2 % (0.0-0.4); LYMPHOCYTES ABSOLUTE AUTO 2.73 K/uL (0.50-3.50); LYMPHOCYTES PERCENT AUTO 24.4 % (10.0-50.0); MONOCYTES ABSOLUTE AUTO 0.66 K/uL (0.00-1.00); MONOCYTES PERCENT AUTO 5.9 % (2.0-14.0); NEUTROPHILS ABSOLUTE AUTO 7.18 K/uL (1.40-7.00); NEUTROPHILS PERCENT AUTO 64.3 % (45.0-80.0); PLATELET COUNT,PLT 430 K/uL (150-350); RED BLOOD CELL COUNT 4.41 M/uL (3.77-5.09); RED CELL DISTRIBUTION WIDTH 16.5 % (11.2-14.1); WHITE BLOOD CELL COUNT,WBC 11.2 K/uL (4.0-10.2)
[2025-01-21] MEDS: Ketorolac 30 MG/ML SDV IM ONE (23:06)
[2025-01-21] MEDS: Orphenadrine 60 MG/2 ML Inj IM ONE (23:06)
[2025-01-21 23:09] LABS: ALANINE AMINOTRANSFERASE,ALT 16 U/L (12-78); ASPARTATE AMNIOTRANSFERASE,AST 11 U/L (15-37); BILIRUBIN TOTAL 0.1 mg/dL (0.2-1.0); BLOOD UREA NITROGEN,BUN 11 mg/dL (7-18); CARBON DIOXIDE,CO2 25.4 mmol/L (21.0-32.0); CHLORIDE,CL 104 mmol/L (98-107); CREATININE 0.89 mg/dL (0.51-1.17); ESTIMATED GFR 82 mL/min (>=60); GLUCOSE RANDOM 128 mg/dL (70-99); POTASSIUM,K 3.8 mmol/L (3.5-5.1); PROTEIN TOTAL,TP 6.7 g/dL (6.4-8.2); SODIUM,NA 138 mmol/L (136-145)
== END 2025-01-22 00:15 | disposition home or self-care (01) ==
LOC: LL.ED 22:11
DX: M54.6 Pain in thoracic spine (principal); I10 Essential (primary) hypertension; J44.89 Other specified chronic obstructive pulmonary disease; E66.9 Obesity, unspecified; Z88.8 Allergy status to other drugs, medicaments and biological substances; Z79.82 Long term (current) use of aspirin; Z79.84 Long term (current) use of oral hypoglycemic drugs; Z79.899 Other long term (current) drug therapy; Z90.49 Acquired absence of other specified parts of digestive tract; Z90.710 Acquired absence of both cervix and uterus
CPT/HCPCS: 36415; 71046; 74019; 74176; 80053; 83605; 83690; 84484; 85025; 85379; 93005; 96372; 99284; A9270-GY; J1885; J2360

== ENCOUNTER 2025-06-15 00:04 | Emergency (ER) | payer MEDICARE, MEDICAID ==
[2025-06-15 00:43] LABS: BASOPHILS ABSOLUTE AUTO 0.03 K/uL (0.00-0.20); BASOPHILS PERCENT AUTO 0.3 % (0.0-2.0); EOSINOPHILS ABSOLUTE AUTO 0.76 K/uL (0.00-0.50); EOSINOPHILS PERCENT AUTO 6.7 % (0.0-5.0); IMMATURE GRAN ABSOLUTE AUTO 0.02 10^3/uL (0.00-0.04); IMMATURE GRAN PERCENT AUTO 0.2 % (0.0-0.4); LYMPHOCYTES ABSOLUTE AUTO 2.58 K/uL (0.50-3.50); LYMPHOCYTES PERCENT AUTO 22.9 % (10.0-50.0); MONOCYTES ABSOLUTE AUTO 0.76 K/uL (0.00-1.00); MONOCYTES PERCENT AUTO 6.7 % (2.0-14.0); NEUTROPHILS ABSOLUTE AUTO 7.13 K/uL (1.40-7.00); NEUTROPHILS PERCENT AUTO 63.2 % (45.0-80.0); PLATELET COUNT,PLT 359 K/uL (150-350); RED BLOOD CELL COUNT 4.40 M/uL (3.77-5.09); RED CELL DISTRIBUTION WIDTH 14.0 % (11.2-14.1); WHITE BLOOD CELL COUNT,WBC 11.3 K/uL (4.0-10.2)
[2025-06-15] MEDS: Sodium Chloride 0.9% 10 ML Syringe FLUSH PRN (00:43)
[2025-06-15 01:03] LABS: INR 1.0 (0.9-1.1); PTT,PARTIAL THROMBOPLSTIN TIME 24.0 SEC (23.8-34.4)
[2025-06-15 01:06] LABS: ALANINE AMINOTRANSFERASE,ALT 23 U/L (12-78); ASPARTATE AMNIOTRANSFERASE,AST 13 U/L (15-37); BILIRUBIN TOTAL 0.1 mg/dL (0.2-1.0); BLOOD UREA NITROGEN,BUN 8 mg/dL (7-18); CARBON DIOXIDE,CO2 27.8 mmol/L (21.0-32.0); CHLORIDE,CL 103 mmol/L (98-107); CREATININE 0.77 mg/dL (0.51-1.17); GLUCOSE RANDOM 143 mg/dL (70-99); POTASSIUM,K 3.9 mmol/L (3.5-5.1); PROTEIN TOTAL,TP 7.3 g/dL (6.4-8.2); SODIUM,NA 141 mmol/L (136-145)
[2025-06-15 01:07] LABS: ESTIMATED GFR 97 mL/min (>=60)
[2025-06-15 01:12] LABS: LACTIC ACID 1.1 mmol/L (0.4-2.0)
[2025-06-15] MEDS: Iopamidol 755 Mg/ML 100 ML Bottle IVPUSH ONE (02:05)
[2025-06-15] MEDS: Take Home: Amoxicillin/Clavulanate K 875-125 MG Tab, 6 Tab Pack PO ONE (03:40)
== END 2025-06-15 03:44 | disposition home or self-care (01) ==
LOC: LL.ED 00:04
DX: L03.313 Cellulitis of chest wall (principal); I10 Essential (primary) hypertension; E78.00 Pure hypercholesterolemia, unspecified; J44.89 Other specified chronic obstructive pulmonary disease; E66.9 Obesity, unspecified; Z87.891 Personal history of nicotine dependence; Z90.89 Acquired absence of other organs; Z90.49 Acquired absence of other specified parts of digestive tract; Z79.51 Long term (current) use of inhaled steroids; Z79.84 Long term (current) use of oral hypoglycemic drugs; Z79.899 Other long term (current) drug therapy; Z79.82 Long term (current) use of aspirin; Z88.8 Allergy status to other drugs, medicaments and biological substances
CPT/HCPCS: 36415; 71045; 71275; 80053; 83605; 83735; 84484; 85025; 85379; 85610; 85730; 86140; 93005; 96374; 96376; 99285-25; A9270-GY; J1171; Q9967

== ENCOUNTER 2025-06-19 16:46 | Emergency (ER) | payer MEDICARE, MEDICAID ==
[2025-06-19 17:41] LABS: BASOPHILS ABSOLUTE AUTO 0.03 K/uL (0.00-0.20); BASOPHILS PERCENT AUTO 0.4 % (0.0-2.0); EOSINOPHILS ABSOLUTE AUTO 0.18 K/uL (0.00-0.50); EOSINOPHILS PERCENT AUTO 2.4 % (0.0-5.0); IMMATURE GRAN ABSOLUTE AUTO 0.02 10^3/uL (0.00-0.04); IMMATURE GRAN PERCENT AUTO 0.3 % (0.0-0.4); LYMPHOCYTES ABSOLUTE AUTO 1.58 K/uL (0.50-3.50); LYMPHOCYTES PERCENT AUTO 20.7 % (10.0-50.0); MONOCYTES ABSOLUTE AUTO 0.63 K/uL (0.00-1.00); MONOCYTES PERCENT AUTO 8.3 % (2.0-14.0); NEUTROPHILS ABSOLUTE AUTO 5.18 K/uL (1.40-7.00); NEUTROPHILS PERCENT AUTO 67.9 % (45.0-80.0); PLATELET COUNT,PLT 317 K/uL (150-350); RED BLOOD CELL COUNT 4.52 M/uL (3.77-5.09); RED CELL DISTRIBUTION WIDTH 13.9 % (11.2-14.1); WHITE BLOOD CELL COUNT,WBC 7.6 K/uL (4.0-10.2)
[2025-06-19 18:06] LABS: ALANINE AMINOTRANSFERASE,ALT 30 U/L (12-78); ASPARTATE AMNIOTRANSFERASE,AST 21 U/L (15-37); BILIRUBIN TOTAL 0.3 mg/dL (0.2-1.0); BLOOD UREA NITROGEN,BUN 6 mg/dL (7-18); CARBON DIOXIDE,CO2 25.3 mmol/L (21.0-32.0); CHLORIDE,CL 101 mmol/L (98-107); CREATININE 1.02 mg/dL (0.51-1.17); GLUCOSE RANDOM 153 mg/dL (70-99); POTASSIUM,K 3.9 mmol/L (3.5-5.1); PROTEIN TOTAL,TP 7.2 g/dL (6.4-8.2); SODIUM,NA 135 mmol/L (136-145)
[2025-06-19 18:11] LABS: ESTIMATED GFR 70 mL/min (>=60)
[2025-06-19] MEDS: Loperamide 2 MG Tab PO ONE (19:58)
[2025-06-19] MEDS: methylPREDNISolone Sodium Succinate 125 MG/2 ML SDV IVPUSH ONE (19:58)
[2025-06-19] MEDS: Take Home: oxyCODONE HCl 5 MG Tab, 5 Tab Pack PO ONE (20:19)
[2025-06-19] MEDS: Lactobacillus Rhamnosus GG (Probiotic) Cap PO ONE (20:22)
[2025-06-19] MEDS ORDERED: Sodium Chloride 0.9% 10 ML Syringe FLUSH PRN (20:36)
== END 2025-06-19 20:30 | disposition home or self-care (01) ==
LOC: LL.ED 16:46
DX: K52.1 Toxic gastroenteritis and colitis (principal); I10 Essential (primary) hypertension; E78.00 Pure hypercholesterolemia, unspecified; J44.89 Other specified chronic obstructive pulmonary disease; Z86.73 Personal history of transient ischemic attack (TIA), and cerebral infarction without residual deficits; Z90.49 Acquired absence of other specified parts of digestive tract; Z79.82 Long term (current) use of aspirin; Z79.899 Other long term (current) drug therapy; Z79.84 Long term (current) use of oral hypoglycemic drugs
CPT/HCPCS: 36415; 80053; 83605; 85025; 87040; 96361; 96374; 99284-25; A9270-GY; J2919; J7030

== ENCOUNTER 2025-06-27 14:44 | Emergency (ER) | payer MEDICARE, MEDICAID ==
[2025-06-27 15:36] LABS: BASOPHILS ABSOLUTE AUTO 0.02 K/uL (0.00-0.20); BASOPHILS PERCENT AUTO 0.2 % (0.0-2.0); EOSINOPHILS ABSOLUTE AUTO 0.03 K/uL (0.00-0.50); EOSINOPHILS PERCENT AUTO 0.3 % (0.0-5.0); IMMATURE GRAN ABSOLUTE AUTO 0.16 10^3/uL (0.00-0.04); IMMATURE GRAN PERCENT AUTO 1.6 % (0.0-0.4); LYMPHOCYTES ABSOLUTE AUTO 2.64 K/uL (0.50-3.50); LYMPHOCYTES PERCENT AUTO 27.1 % (10.0-50.0); MONOCYTES ABSOLUTE AUTO 0.66 K/uL (0.00-1.00); MONOCYTES PERCENT AUTO 6.8 % (2.0-14.0); NEUTROPHILS ABSOLUTE AUTO 6.24 K/uL (1.40-7.00); NEUTROPHILS PERCENT AUTO 64.0 % (45.0-80.0); PLATELET COUNT,PLT 330 K/uL (150-350); RED BLOOD CELL COUNT 4.78 M/uL (3.77-5.09); RED CELL DISTRIBUTION WIDTH 14.5 % (11.2-14.1); WHITE BLOOD CELL COUNT,WBC 9.8 K/uL (4.0-10.2)
[2025-06-27] MEDS: Lactated Ringers 1,000 ML IV SCH (15:40)
[2025-06-27 15:53] LABS: LACTIC ACID 0.8 mmol/L (0.4-2.0)
[2025-06-27 16:02] LABS: ALANINE AMINOTRANSFERASE,ALT 60 U/L (12-78); ASPARTATE AMNIOTRANSFERASE,AST 39 U/L (15-37); BILIRUBIN TOTAL 0.4 mg/dL (0.2-1.0); BLOOD UREA NITROGEN,BUN 12 mg/dL (7-18); CARBON DIOXIDE,CO2 27.4 mmol/L (21.0-32.0); CHLORIDE,CL 103 mmol/L (98-107); CREATINE KINASE,CK 15 U/L (26-308); CREATININE 0.72 mg/dL (0.51-1.17); EST CRCL DRUG DOSING (CG) 93.34 mL/min; ETHANOL BLOOD MEDICAL 0.001 g/dL (0.000-0.080); GLUCOSE RANDOM 120 mg/dL (70-99); POTASSIUM,K 3.6 mmol/L (3.5-5.1); PROTEIN TOTAL,TP 7.0 g/dL (6.4-8.2); SODIUM,NA 139 mmol/L (136-145)
[2025-06-27 16:03] LABS: ESTIMATED GFR 106 mL/min (>=60)
[2025-06-27 16:54] LABS: AMPHETAMINES SCREEN, URINE NEGATIVE (NEGATIVE); BUPRENORPHINE SCREEN,URINE NEGATIVE (NEGATIVE); COCAINE METABOLITES,URINE NEGATIVE (NEGATIVE); EDDP,URINE SCREEN NEGATIVE (NEGATIVE); METHAMPHETAMINES SCREEN, URINE NEGATIVE (NEGATIVE); OXYCODONE SCREEN,URINE NEGATIVE (NEGATIVE); TCA SCREEN,URINE NEGATIVE (NEGATIVE); THC SCREEN,URINE 50 NG/ML NEGATIVE (NEGATIVE)
[2025-06-27 17:06] LABS: APPEARANCE,URINE CLEAR; GLUCOSE,URINE NEGATIVE (NEGATIVE); OCCULT BLOOD,URINE NEGATIVE (NEGATIVE)
[2025-06-27 17:08] LABS: INR 1.1 (0.9-1.1); PTT,PARTIAL THROMBOPLSTIN TIME 22.7 SEC (23.8-34.4)
[2025-06-27] MEDS: Sodium Chloride 0.9% 10 ML Syringe FLUSH PRN (17:49)
[2025-06-27] MEDS: Hydrocortisone Sodium Succinate 100 MG/2 ML SDV IVPUSH ONE (17:49)
== END 2025-06-27 18:28 ==
LOC: LL.ED 14:44
DX: R41.82 Altered mental status, unspecified (principal); E86.0 Dehydration; I10 Essential (primary) hypertension; J44.89 Other specified chronic obstructive pulmonary disease; E66.9 Obesity, unspecified; Z68.43 Body mass index [BMI] 50.0-59.9, adult; Z90.49 Acquired absence of other specified parts of digestive tract; Z90.710 Acquired absence of both cervix and uterus; Z88.8 Allergy status to other drugs, medicaments and biological substances; Z79.82 Long term (current) use of aspirin; Z79.84 Long term (current) use of oral hypoglycemic drugs; Z79.899 Other long term (current) drug therapy
CPT/HCPCS: 36415; 70450; 71045; 80053; 80305-QW; 80307; 81001; 81025; 82550; 83605; 83735; 84484; 85025; 85610; 85730; 86140; 87040; 93005; 93010; 96361; 96374; 99284; 99285-25; J1720; J7120